=== PATIENT | female | born 1955 | race Caucasian/White ===

== ENCOUNTER 2016-05-06 12:54 | Inpatient (IN) | payer MEDICARE, BC ==
[2016-05-06] MEDS ORDERED: methylPREDNISolone SOD SUCCI 125 MG/2 ML VIAL IV STA (13:21)
[2016-05-06] MEDS ORDERED: SODIUM CHLORIDE 0.9% 1,000 ML IV STA (13:21)
[2016-05-06] MEDS ORDERED: IPRATROPIUM-ALBUTEROL 3 ML NEB INHALATION STA (13:21)
--- NOTE | 2016-05-06 13:26 | ED ---
General Adult HPI - General Chief complaint: Shortness of Breath Stated complaint: TANVI/Congestion Time Seen by Provider: 05/06/16 13:09 Source: patient, family, RN notes reviewed Mode of arrival: wheelchair Limitations: no limitations - History of Present Illness Initial comments: Chief complaint and history of present illness a 60-year-old female here with her daughter. The patient reports that she been having difficulty breathing getting increasingly so over the last several days she has chest discomfort from coughing so much productive green in color. History of asthmaCOPD. Denies fever. is on home O2 - Related Data Home Medications Medication Instructions Recorded Confirmed Albuterol Inhaler [Ventolin Hfa 1 - 2 puff INHALATION RT-QID PRN 05/17/15 Inhaler] Albuterol Nebulized [Ventolin 2.5 mg INHALATION RT-QID PRN 05/17/15 05/06/16 Nebulized] Atenolol [Tenormin] 25 mg PO DAILY 02/29/16 05/06/16 Formoterol Fumarate [Perforomist] 20 mcg INHALATION RT-BID 02/29/16 05/06/16 Budesonide/Formoterol Fumarate 2 puff INHALATION RT-BID 05/06/16 05/06/16 [Symbicort 160-4.5 Mcg Inhaler] Cetirizine HCl [Zyrtec] 10 mg PO DAILY 05/06/16 05/06/16 Ciprofloxacin HCl [Cipro] 500 mg PO BID 05/06/16 05/06/16 L.acidoph,Paracasei, B.lactis 1 cap PO DAILY 05/06/16 05/06/16 [Probiotic] Multivitamins, Thera [Multivitamin] 1 tab PO DAILY 05/06/16 05/06/16 Theophylline Anhydrous 200 mg PO DAILY 05/06/16 05/06/16 [Theophylline] guaiFENesin [Mucinex] 600 mg PO BID 05/06/16 05/06/16 predniSONE See Taper PO DAILY 05/06/16 05/06/16 Previous Rx's Medication Instructions Recorded Budesonide [Pulmicort] 1 mg INHALATION RT-BID #60 nebu 06/01/15 Tiotropium 18 Mcg/Puff [Spiriva] 1 puff INHALATION RT-DAILY #1 06/01/15 inhaler Allergies Allergy/AdvReac Type Severity Reaction Status Date / Time Sulfa (Sulfonamide Allergy Rash/Hives Verified 05/06/16 13:42 Antibiotics) pet dander Allergy Rash/Hives Uncoded 05/06/16 13:05 Review of Systems ROS Statement: Those systems with pertinent positive or pertinent negative responses have been documented in the HPI. Review of systems no complaint of visual acuity changes no complaint of headache no neck pain she is short of breath history of COPD productive cough. Laryngitis setting in. Coughing increases chest pain. No abdominal pain no nausea no vomiting no reports of diarrhea. All systems otherwise reviewed. Past medical problems significant for asthma and COPD chronic back pain no pain medications. Also medication for arrhythmia. Her surgeries include , tonsillectomy and tubal ligation. She's had colonoscopies with multiple polyps removed but no cancer diagnosed. Patient's family history significant for cancers and include prostate, kidney, bladder, leukemia, lung, bone cancer. Patient has ALLERGIES to sulfa drugs. She quit smoking one year ago denies alcohol use ROS Other: All systems not noted in ROS Statement are negative. Past Medical History Past Medical History: Asthma, COPD Additional Past Medical History / Comment(s): back pain, home O2 dependent, endometriosis History of Any Multi-Drug Resistant Organisms: None Reported Past Surgical History: Section, Tonsillectomy, Tubal Ligation Additional Past Surgical History / Comment(s): colonoscopy with polypectomy- benign, C-Diff, D&C. Past Anesthesia/Blood Transfusion Reactions: No Reported Reaction Past Psychological History: Anxiety Additional Psychological History / Comment(s): . Smoking Status: Former smoker Past Alcohol Use History: None Reported Additional Past Alcohol Use History / Comment(s): quit smoking 05/17/15 currently using nicotine patches. Past Drug Use History: None Reported - Past Family History Father Family Medical History: Cancer Additional Family Medical History / Comment(s): Father is . He had kidney, bladder and prostate cancer. He also had leukemia. Mother Additional Family Medical History / Comment(s): Mother is alive and 81 yrs old. She has a pacemaker and has had cardioversion. General Exam - General Exam Comments Initial Comments: General: The patient is awake and alert, appears short of breath having difficulty breathing coughing with productive cough greenish color. Chest wall pain with coughing. Hoarse of voice. Vital signs show temperature 97.9 pulse 95 respiratory rate 20 pulse ox 95% on 2-1/2 L. Blood pressure 109/66 Eye: Pupils are equal, round and reactive to light, extra-ocular movements are intact ; there is normal conjunctiva bilaterally. No signs of icterus. Ears, nose, mouth and throat: Reddened mucous membranes complaints of sore throat. Mildly dry tongue. Neck: The neck is supple, there is no tenderness , no anterior cervical lymphadenopathy, no neck pain. Cardiovascular: There is a regular rate and rhythm. No murmur, rub or gallop is appreciated. Respiratory: Wheezing bilaterally. Respiratory rate 20 pulse ox 95% on 2 L. Gastrointestinal: Soft, non-distended, non-tender abdomen without masses or organomegaly noted. There is no rebound or guarding present. No CVA tenderness. Bowel sounds are unremarkable. Back: There is no tenderness to palpation in the midline. There is no obvious deformity. Chronic back pain. Musculoskeletal: Normal ROM, no tenderness, There is no pedal edema. There is no calf tenderness or swelling. Sensation intact. Pulses equal bilaterally 2+. Neurological: No neuro deficits, walking talking balance. No focal or lateralizing findings. No complaints. Skin: Skin is warm and dry and no rashes or lesions are noted. Limitations: no limitations Course Vital Signs 05/06/16 05/06/16 05/06/16 13:04 13:21 13:39 Temperature 97.9 F 99.1 F Pulse Rate 95 99 Respiratory 20 26 H Rate Blood Pressure 109/66 O2 Sat by Pulse 95 Oximetry 05/06/16 13:52 Temperature Pulse Rate 89 Respiratory Rate Blood Pressure O2 Sat by Pulse Oximetry EKG Findings - EKG Comments: EKG Findings:: EKG was done and reviewed at 1336 showing sinus arrhythmia, occasional PVCs. Otherwise no acute ST elevation. Rate 92. Arm was 110 QRS 78 QT 3:[address] Ramsay Medical Decision Making - Medical Decision Making Medical decision making; patient's white count 20,000 should be noted she is on prednisone. Hemoglobin 15 hematocrit of 47, INR 1.0. The patient's potassium is 4.2 with a BUN 9 creatinine 0.6 and GFR greater than 60. Glucose 169. Patient had chest x-ray done and was reviewed radiologist his findings are the cardiomediastinal silhouette, aorta, and pulmonary vasculature within normal limits. Hyperinflation with mild diffuse interstitial prominence. Some strandy scarring and atelectasis of the lung bases. No consolidation and pleural effusion. Impression; COPD and chronic changes. No acute process. As read by Dr. Candelaria The plan the patient be admitted for acute exacerbation of asthma COPD. The patient's stiff neck loader will be consulted. - Lab Data Result diagrams: 05/06/16 13:24 05/06/16 13:24 Lab Results 05/06/16 05/06/16 05/06/16 Range/Units 13:24 13:24 13:24 WBC 20.1 H (3.8-10.6) k/uL RBC 5.15 (3.80-5.40) m/uL Hgb 15.5 (11.4-16.0) gm/dL Hct 47.7 H (34.0-46.0) % MCV 92.8 (80.0-100.0) fL MCH 30.1 (25.0-35.0) pg MCHC 32.5 (31.0-37.0) g/dL RDW 13.4 (11.5-15.5) % Plt Count 328 (150-450) k/uL Neutrophils % 91 % Lymphocytes % 5 % Monocytes % 3 % Eosinophils % 0 % Basophils % 0 % Neutrophils # 18.4 H (1.3-7.7) k/uL Lymphocytes # 1.0 (1.0-4.8) k/uL Monocytes # 0.6 (0-1.0) k/uL Eosinophils # 0.1 (0-0.7) k/uL Basophils # 0.0 (0-0.2) k/uL PT 10.1 (9.0-12.0) sec INR 1.0 (<1.1) APTT 22.4 (22.0-30.0) sec Sodium 140 (137-145) mmol/L Potassium 4.2 (3.5-5.1) mmol/L Chloride 95 L (98-107) mmol/L Carbon Dioxide 31 H (22-30) mmol/L Anion Gap 14 mmol/L BUN 9 (7-17) mg/dL Creatinine 0.60 (0.52-1.04) mg/dL Est GFR (MDRD) Af Amer >60 (>60 ml/min/1.73 sqM) Est GFR (MDRD) Non-Af >60 (>60 ml/min/1.73 sqM) Glucose 169 H (74-99) mg/dL Calcium 10.2 (8.4-10.2) mg/dL Magnesium 1.9 (1.6-2.3) mg/dL Total Bilirubin 0.3 (0.2-1.3) mg/dL AST 33 (14-36) U/L ALT 41 (9-52) U/L Alkaline Phosphatase 81 (38-126) U/L Total Protein 6.6 (6.3-8.2) g/dL Albumin 4.0 (3.5-5.0) g/dL Disposition Clinical Impression: Acute exacerbation of COPD with asthma Disposition: ADMITTED IP TO THIS HOSP Condition: Stable
[2016-05-06 13:50] LABS: Basophils % (A) 0 %; CH 30.6; CHCM 33.1; Eosinophils # (A) 0.1 k/uL (0-0.7); Eosinophils % (A) 0 %; HCT 47.7 % (34.0-46.0); HDW 2.43; HGB 15.5 gm/dL (11.4-16.0); Luc # (Auto) 0.16; Luc % (Auto) 1; Lymphocytes % (A) 5 %; MCH 30.1 pg (25.0-35.0); MCHC 32.5 g/dL (31.0-37.0); MCV 92.8 fL (80.0-100.0); Mean Platelet Volume 6.4; Monocytes # (A) 0.6 k/uL (0-1.0); Monocytes % (A) 3 %; Neutrophils # (A) 18.4 k/uL (1.3-7.7); Neutrophils % (A) 91 %; RBC 5.15 m/uL (3.80-5.40); RDW 13.4 % (11.5-15.5); WBC 20.1 k/uL (3.8-10.6); WBC (Perox) 20.01
[2016-05-06 13:56] LABS: Partial Thromboplastin Time 22.4 sec (22.0-30.0); Prothrombin Time 10.1 sec (9.0-12.0)
[2016-05-06 13:59] LABS: ALT 41 U/L (9-52); AST 33 U/L (14-36); Alkaline Phosphatase 81 U/L (38-126); Anion Gap 14 mmol/L; Blood Urea Nitrogen 9 mg/dL (7-17); Calcium 10.2 mg/dL (8.4-10.2); Carbon Dioxide 31 mmol/L (22-30); Chloride 95 mmol/L (98-107); Glucose 169 mg/dL (74-99); Magnesium 1.9 mg/dL (1.6-2.3); Non-African American GFR(MDRD) >60 (>60 ml/min/1.73 sqM); Potassium 4.2 mmol/L (3.5-5.1); Sodium 140 mmol/L (137-145); Total Bilirubin 0.3 mg/dL (0.2-1.3); Total Protein 6.6 g/dL (6.3-8.2)
--- NOTE | 2016-05-06 14:11 | XR ---
EXAMINATION TYPE: XR chest 2V DATE OF EXAM: 05/06/2016 2:06 PM COMPARISON: 02/29/2016 and 05/02/2016 HISTORY: 60-year-old female short of breath, COPD, productive cough TECHNIQUE: Frontal and lateral views FINDINGS: The cardiomediastinal silhouette, aorta, and pulmonary vasculature are within normal limits. Hyperinf lation with mild diffuse interstitial prominence. Some strandy scarring and atelectasis at the lung b ases. No consolidation or pleural effusion. IMPRESSION: COPD and chronic changes. No acute process seen.
[2016-05-06 14:18] LABS: Creatine Kinase 110 U/L (30-135)
[2016-05-06] MEDS ORDERED: NALOXONE 0.4 MG/ML 1 ML VIAL IV PRN (14:19)
[2016-05-06 14:31] LABS: Troponin I <0.012 ng/mL (0.000-0.034)
[2016-05-06 14:35] LABS: Creatine Kinase MB 2.9 ng/mL (0.0-2.4)
[2016-05-06 16:47] LABS: Glucose,Whole Blood 210 mg/dL (75-99)
[2016-05-06] MEDS: SODIUM CHLORIDE 0.9% 1,000 ML IV SCH (17:38)
[2016-05-06] MEDS: FORMOTEROL FUMARATE 20 MCG/2 ML NEBU INHALATION SCH (19:46)
[2016-05-06] MEDS: BUDESONIDE 1 MG/2 ML NEBU INHALATION SCH (19:46)
[2016-05-06] MEDS: IPRATROPIUM-ALBUTEROL 3 ML NEB INHALATION PRN (19:46)
[2016-05-06] MEDS ORDERED: SYMBICORT 160-4.5 MCG INHALER INHALATION SCH (20:00)
[2016-05-06] MEDS: guaiFENesin 600 MG TABLET.ER PO SCH (20:11)
[2016-05-06] MEDS: CIPROFLOXACIN HCL 500 MG TAB PO SCH (20:11)
[2016-05-06] MEDS: ACETAMINOPHEN TAB 325 MG TAB PO PRN (20:13)
[2016-05-06] MEDS: ALPRAZolam 0.25 MG TAB PO PRN (20:13)
[2016-05-06 21:15] LABS: Glucose,Whole Blood 161 mg/dL (75-99)
[2016-05-06] MEDS: HEPARIN SODIUM,PORCINE 5,000 UNIT/ML 1 ML VIAL SQ SCH (23:38)
[2016-05-06] MEDS: methylPREDNISolone SOD SUCCI 125 MG/2 ML VIAL IV SCH (23:39)
[2016-05-07] MEDS ORDERED: methylPREDNISolone SOD SUCCI 125 MG/2 ML VIAL IV SCH
[2016-05-07] MEDS: SODIUM CHLORIDE 0.9% 1,000 ML IV SCH ×2 (00:21→16:34)
[2016-05-07] MEDS: methylPREDNISolone SOD SUCCI 125 MG/2 ML VIAL IV SCH ×4 (05:15→23:17)
[2016-05-07 07:04] LABS: Glucose,Whole Blood 148 mg/dL (75-99)
[2016-05-07] MEDS: guaiFENesin 600 MG TABLET.ER PO SCH ×2 (08:13→20:01)
[2016-05-07] MEDS: THEOPHYLLINE 24 HOUR 200 MG CAP.ER.24H PO SCH (08:13)
[2016-05-07] MEDS: HEPARIN SODIUM,PORCINE 5,000 UNIT/ML 1 ML VIAL SQ SCH ×3 (08:13→23:17)
[2016-05-07] MEDS: LORATADINE 10 MG TAB PO SCH (08:13)
[2016-05-07] MEDS: PANTOPRAZOLE 40 MG/10 ML VIAL IV SCH (08:13)
[2016-05-07] MEDS: CIPROFLOXACIN HCL 500 MG TAB PO SCH ×2 (08:13→20:01)
[2016-05-07] MEDS: LACTOBACILLUS ACIDOPH & BULGAR 1 EACH PACKET PO SCH (08:13)
[2016-05-07] MEDS: INSULIN LISPRO (humaLOG) 300 UNIT/3 ML VIAL SQ SCH ×4 (08:16→22:07)
[2016-05-07] MEDS: IPRATROPIUM-ALBUTEROL 3 ML NEB INHALATION PRN ×4 (08:22→19:41)
[2016-05-07] MEDS: BUDESONIDE 1 MG/2 ML NEBU INHALATION SCH ×2 (08:23→19:41)
[2016-05-07] MEDS: FORMOTEROL FUMARATE 20 MCG/2 ML NEBU INHALATION SCH ×2 (08:23→19:41)
[2016-05-07] MEDS ORDERED: ATENOLOL 25 MG TAB PO SCH (09:00)
[2016-05-07 09:01] LABS: Basophils % (A) 0 %; CH 30.5; CHCM 32.5; Eosinophils % (A) 0 %; HCT 45.3 % (34.0-46.0); HDW 2.46; HGB 14.2 gm/dL (11.4-16.0); Luc # (Auto) 0.07; Luc % (Auto) 1; Lymphocytes # (A) 0.9 k/uL (1.0-4.8); Lymphocytes % (A) 7 %; MCH 29.5 pg (25.0-35.0); MCHC 31.4 g/dL (31.0-37.0); MCV 94.1 fL (80.0-100.0); Mean Platelet Volume 6.8; Monocytes # (A) 0.3 k/uL (0-1.0); Monocytes % (A) 2 %; Neutrophils % (A) 90 %; RBC 4.81 m/uL (3.80-5.40); RDW 13.2 % (11.5-15.5); WBC 13.3 k/uL (3.8-10.6)
[2016-05-07 09:40] LABS: Anion Gap 9 mmol/L; Blood Urea Nitrogen 12 mg/dL (7-17); Calcium 8.8 mg/dL (8.4-10.2); Carbon Dioxide 32 mmol/L (22-30); Chloride 100 mmol/L (98-107); Glucose 181 mg/dL (74-99); Non-African American GFR(MDRD) >60 (>60 ml/min/1.73 sqM); Potassium 4.3 mmol/L (3.5-5.1); Sodium 141 mmol/L (137-145)
[2016-05-07 11:00] LABS: Hemoglobin A1C 5.8 % (4.2-6.1)
[2016-05-07] MEDS: MULTIVITAMINS, THERA 1 EACH TAB PO SCH (11:12)
--- NOTE | 2016-05-07 11:16 | HP ---
DATE OF ADMISSION: 05/06/2016 CHIEF COMPLAINT: Difficulty breathing. HISTORY OF PRESENT ILLNESS: Ms. Olivera is a 60-year-old female with known history of COPD on home oxygen, chronic back pain and previous history of smoking, came to the hospital with complaints of worsening short of breath. Increasingly getting worse since last . Apparently patient did follow with Dr. Quinteros and the patient was given a steroid tapering dose and antibiotics, which did not improve her short of breath and she also complained of chest pain with coughing and headache as well. Sputum is more greenish in color. Otherwise, denied any fever. No chills. No sick contacts at home. Patient has been taking steroids and antibiotics and was using breathing treatments at home. REVIEW OF SYSTEMS: CONSTITUTIONAL: No fever. No chills. No weakness. RESPIRATORY: The patient does have cough with sputum production greenish and short of breath. CARDIOVASCULAR: No chest pain. Patient does have short of breath and no leg swelling. ABDOMEN: No nausea, vomiting, or abdominal pain. GENITOURINARY: Negative. ENDOCRINE: Negative. PSYCHIATRIC: Negative. SKIN: Negative. All other fourteen-point review of systems negative except as above. Past medical history includes asthma, COPD on home oxygen and chronic back pain and endometriosis. PAST SURGICAL HISTORY: , tonsillectomy tubal ligation, colonoscopy with polypectomy and D&C. PSYCHOSOCIAL HISTORY: Anxiety. SOCIAL HISTORY: Patient is a former smoker; quit smoking in May 2015 and is currently using nicotine patches. Denied any alcohol use. Denied any drugs or IVDU. FAMILY HISTORY: Father had cancer. He had kidney, bladder, and prostate cancer. He also had leukemia. Mother is alive and 81-year-old. She has a pacemaker and has had cardioversion. ALLERGIES: SULFA AND PET DANDER. Home medications: 1. Albuterol inhaler. 2. Albuterol nebulization. 3. Atenolol. 4. Formoterol. 5. Symbicort. 6. Cetirizine. 7. Ciprofloxacin. 8. Probiotic. 9. Multivitamins. 10. Theophylline. 11. Mucinex. 12. Prednisone tapering dose. 13. Pulmicort. 14. Tiotropium. PHYSICAL EXAMINATION: A 60-year-old female sitting in the bed comfortably, anxious, appears to be in mild distress due to short of breath. VITALS: Blood pressure is 114/62, pulse is 90, respirations 20, temperature afebrile, pulse ox 95% on 2 L nasal cannula. HEENT: Atraumatic, normocephalic. Neck is supple. No JVD. CVS: S1, S2 heard. No murmurs, no gallop. LUNGS: Bilateral diffuse wheezing and decreased air entry bilaterally. No crackles. Nonlabored breathing. ABDOMEN: Soft, nontender. Bowel sounds present. BLASTING ENTRYMAN: Awake, alert and oriented times three. No focal neurologic deficits. Cranial nerves grossly intact. EXTREMITIES: No edema. Pulses are palpable bilaterally. No clubbing or cyanosis. PSYCHIATRIC: Cooperative. Anxious. LABORATORY DATA: WBC 20.1, hemoglobin 15.5, platelets 328. Sodium 140, potassium 4.2, chloride 95, bicarb is 31, blood sugar 169, BUN 9, creatinine 0.6, NT-proBNP 110, Albumin 4.0, insulin type A and B not detected. Chest x-ray and chronic changes. No acute process is seen. EKG shows sinus rhythm with PVC. IMPRESSION: 1. Shortness of breath secondary to acute chronic obstructive pulmonary disease exacerbation. 2. Chronic respiratory failure secondary to chronic obstructive pulmonary disease on home oxygen dependent. 3. Leukocytosis, likely secondary to steroid use. 4. Tracheobronchitis. 5. Chronic back pain. 6. Anxiety. DISCUSSION AND PLAN: Patient will be continued on albuterol Atrovent breathing treatments and continue Formoterol and Pulmicort. Pulmonary has been consulted for further evaluation. We will get sputum culture and follow up blood cultures and continue the current management. Continue with cough syrup and pain management with Tylenol.
[2016-05-07 11:40] LABS: Glucose,Whole Blood 132 mg/dL (75-99)
[2016-05-07] MEDS: TIOTROPIUM 18 MCG/PUFF INHALER INHALATION SCH (11:51)
[2016-05-07 16:59] LABS: Glucose,Whole Blood 135 mg/dL (75-99)
--- NOTE | 2016-05-07 18:55 | P.CNPUL ---
History of Present Illness Consult date: 05/07/16 Reason for consult: COPD History of present illness: 60-year-old here patient with known history of advanced COPD with a baseline FEV1 of 34% of predicted was recently seen in our office for an acute COPD exacerbation the patient was given a course of Cipro and a steroid burst taper. The patient unfortunately did not show any signs of recovery and she came into the hospital because of increased shortness of breath chest tightness and wheezing. She is admitted currently for an acute COPD exacerbation. She is on a combination of DuoNeb neb last treatment [id number], Pulmicort Respules , Perforomist neb last treatment was and IV Solu-Medrol. The chest x-rays consistent with COPD without any acute process. No angina. No swelling lower extremities. No change in mental status. No other complaints otherwise. The patient is an ex-smoker and she quit smoking approximately a year ago. In terms of her COPD, the patient has a maintained on Spiriva and a maternal blood she was on a stat basis and she's been utilizing oxygen as needed especially at nighttime. Review of Systems For review of system was done and the positive findings are all mentioned above Past Medical History Past Medical History: COPD Additional Past Medical History / Comment(s): COPD, chronic hypoxic respiratory failure, chronic back pain, osteoarthritis, history of C. diff colitis, endometriosis. History of Any Multi-Drug Resistant Organisms: None Reported Past Surgical History: Section, Tonsillectomy, Tubal Ligation Additional Past Surgical History / Comment(s): colonoscopy with polypectomy- benign, C-Diff, D&C. Past Anesthesia/Blood Transfusion Reactions: No Reported Reaction Past Psychological History: Anxiety Additional Psychological History / Comment(s): . Smoking Status: Former smoker Past Alcohol Use History: None Reported Additional Past Alcohol Use History / Comment(s): STARTED AMOKING AT AGE 18 SMOKED 1PPD, quit smoking 05/18/15 Past Drug Use History: None Reported - Past Family History Father Family Medical History: Cancer Additional Family Medical History / Comment(s): Father is . He had kidney, bladder and prostate cancer. He also had leukemia. Mother Additional Family Medical History / Comment(s): Mother is alive and 81 yrs old. She has a pacemaker and has had cardioversion. Medications and Allergies Home Medications Medication Instructions Recorded Confirmed Type Albuterol Inhaler [Ventolin Hfa 1 - 2 puff INHALATION RT-QID PRN 05/17/15 History Inhaler] Albuterol Nebulized [Ventolin 2.5 mg INHALATION RT-QID PRN 05/17/15 05/06/16 History Nebulized] Atenolol [Tenormin] 25 mg PO DAILY 02/29/16 05/06/16 History Formoterol Fumarate [Perforomist] 20 mcg INHALATION RT-BID 02/29/16 05/06/16 History Budesonide/Formoterol Fumarate 2 puff INHALATION RT-BID 05/06/16 05/06/16 History [Symbicort 160-4.5 Mcg Inhaler] Cetirizine HCl [Zyrtec] 10 mg PO DAILY 05/06/16 05/06/16 History Ciprofloxacin HCl [Cipro] 500 mg PO BID 05/06/16 05/06/16 History L.acidoph,Paracasei, B.lactis 1 cap PO DAILY 05/06/16 05/06/16 History [Probiotic] Multivitamins, Thera [Multivitamin] 1 tab PO DAILY 05/06/16 05/06/16 History Theophylline Anhydrous 200 mg PO DAILY 05/06/16 05/06/16 History [Theophylline] guaiFENesin [Mucinex] 600 mg PO BID 05/06/16 05/06/16 History predniSONE See Taper PO DAILY 05/06/16 05/06/16 History Allergies Allergy/AdvReac Type Severity Reaction Status Date / Time Sulfa (Sulfonamide Allergy Rash/Hives Verified 05/06/16 13:42 Antibiotics) pet dander Allergy Rash/Hives Uncoded 05/06/16 13:05 Physical Exam Vitals: Vital Signs Temp Pulse Pulse Resp BP Pulse Ox 05/07/16 17:15 132 H 05/07/16 17:05 132 H 05/07/16 15:00 96.1 F L 128 H 18 127/72 96 05/07/16 12:16 104 H 05/07/16 11:52 104 H 05/07/16 08:47 108 H 05/07/16 08:35 100 05/07/16 08:34 100 05/07/16 08:23 100 05/07/16 07:00 96.8 F L 89 16 101/68 97 05/06/16 23:00 97.6 F 98 20 100/67 97 05/06/16 20:10 104 H 05/06/16 19:58 104 H 05/06/16 19:57 104 H 05/06/16 19:48 100 Intake and Output 05/07/16 05/07/16 05/07/16 06:59 14:59 22:59 Intake Total 980 640 Balance 980 640 Intake: IV 640 Sodium Chloride 0.9% 1, 640 000 ml @ 80 mls/hr IV . [id number] DEVIN Rx#:[id number] Intake, IV Titration 880 Amount Sodium Chloride 0.9% 1, 880 000 ml @ 80 mls/hr IV . [id number] DEVIN Rx#:[id number] Oral 100 Other: # Voids 1 3 Head exam was generally normal. There was no scleral icterus or corneal arcus. Mucous membranes were moist.Neck was supple and without jugular venous distension, thyromegaly, or carotid bruits. Carotids were easily palpable bilaterally. There was no adenopathy. Lung sounds are diminished bilaterally and there is some scattered expiratory wheezes bilaterally.Cardiac exam revealed the PMI to be normally situated and sized. The rhythm was regular and no extrasystoles were noted during several minutes of auscultation. The first and second heart sounds were normal and physiologic splitting of the second heart sound was noted. There were no murmurs, rubs, clicks, or gallops. Abdominal exam revealed normal bowel sounds. The abdomen was soft, non-tender, and without masses, organomegaly, or appreciable enlargement of the abdominal aorta.Examination of the extremities revealed easily palpable radial, femoral and pedal pulses. There was no cyanosis, clubbing or edema. Results - Laboratory Findings CBC and BMP: 05/07/16 08:04 05/07/16 08:04 PT/INR, D-dimer PT 10.1 sec (9.0-12.0) 05/06/16 13:24 INR 1.0 (<1.1) 05/06/16 13:24 Abnormal lab findings: Abnormal Labs 05/06/16 05/06/16 05/07/16 16:41 21:00 06:57 WBC Neutrophils # Lymphocytes # Carbon Dioxide Glucose POC Glucose (mg/dL) 210 H 161 H 148 H 05/07/16 05/07/16 05/07/16 08:04 08:04 11:16 WBC 13.3 H Neutrophils # 12.0 H Lymphocytes # 0.9 L Carbon Dioxide 32 H Glucose 181 H POC Glucose (mg/dL) 132 H 05/07/16 16:57 WBC Neutrophils # Lymphocytes # Carbon Dioxide Glucose POC Glucose (mg/dL) 135 H - Diagnostic Findings Chest x-ray: image reviewed Assessment and Plan Plan: Assessment 1 acute COPD exacerbation with secondary shortness of breath, failed outpatient treatment. Chest x-rays clear and free of any acute pulmonary infiltrates. 2 shortness of breath secondary to above 3 chronic hypoxic respiratory failure 4 chronic osteoarthritis with back pain. 5 endometriosis Plan In terms of therapy, we'll put the patient on DuoNeb nebulized treatments, Perforomist and Pulmicort overestimates twice a day, IV Solu-Medrol. We'll cautiously use antibiotics Mr. the patient has had previous C. diff colitis. The patient is currently on oral ciprofloxacin which will be continued. Is patient was evaluated in the presence of Dr. Brower to the bedside.
[2016-05-07] MEDS: ACETAMINOPHEN TAB 325 MG TAB PO PRN (19:34)
[2016-05-07] MEDS: ALPRAZolam 0.25 MG TAB PO PRN (20:01)
[2016-05-07 21:53] LABS: Glucose,Whole Blood 148 mg/dL (75-99)
[2016-05-07] MEDS ORDERED: METOPROLOL TARTRATE 25 MG TAB PO STA (22:51)
[2016-05-08] MEDS: SODIUM CHLORIDE 0.9% 1,000 ML IV SCH (04:00)
[2016-05-08] MEDS: methylPREDNISolone SOD SUCCI 125 MG/2 ML VIAL IV SCH ×4 (06:27→23:18)
[2016-05-08 07:27] LABS: Glucose,Whole Blood 129 mg/dL (75-99)
[2016-05-08] MEDS: BUDESONIDE 1 MG/2 ML NEBU INHALATION SCH ×2 (08:14→19:39)
[2016-05-08] MEDS: FORMOTEROL FUMARATE 20 MCG/2 ML NEBU INHALATION SCH ×2 (08:14→19:39)
[2016-05-08] MEDS: TIOTROPIUM 18 MCG/PUFF INHALER INHALATION SCH (08:14)
[2016-05-08] MEDS: IPRATROPIUM-ALBUTEROL 3 ML NEB INHALATION PRN ×3 (08:14→19:39)
--- NOTE | 2016-05-08 08:44 | PN ---
DATE OF SERVICE: 05/07/2016 INTERVAL HISTORY: Ms. Olivera is a 60-year-old female with known history of COPD and home oxygen, chronic back pain and history of smoking came to the hospital with worsening short of breath and failed outpatient therapy for COPD exacerbation. Currently, the patient is still wheezing and complaining of short of breath, but improved compared to yesterday. Leukocytosis improved as well. No fever. No chills. No acute overnight issues. REVIEW OF SYSTEMS: CONSTITUTIONAL: No fever. No chills. CARDIOVASCULAR: No chest pain. No worsening short of breath. RESPIRATORY: Patient does have cough with minimal sputum production and short of breath. PSYCHIATRIC: Negative. ENDOCRINE: Negative. NEUROLOGIC: Negative. MUSCULOSKELETAL: Negative. All other 14-point of review of systems negative except as above. CURRENT MEDICATIONS: Reviewed. PHYSICAL EXAMINATION: A 60-year-old female, lying in bed comfortably. Awake, alert, oriented x3. Appears to be in no apparent distress. VITALS: Blood pressure is 127/72, pulse is 128, respiration 18, temperature afebrile, pulse ox 98% on 3 L nasal cannula. HEENT: Atraumatic, normocephalic. Neck is supple. No JVD. CVS EXAM: S1, S2 heard. No murmurs, no gallop. LUNGS: Bilateral diffuse wheezing and rhonchi, no crackles. Nonlabored breathing. ABDOMEN: Soft and nontender. Bowel sounds are present. DATE NIGHT CAREGIVER: Awake, alert and oriented x3. No focal neurologic deficit. EXTREMITIES: Bilateral no edema. Pulses palpable bilaterally. No clubbing or cyanosis. PSYCHIATRIC: Cooperative. LABORATORY DATA: WBC 13.3, hemoglobin 14.2, platelets 341. Sodium 141, potassium 4.3, chloride 100, bicarb 32, BUN 12, creatinine 0.55. Blood sugar is 181. HBA1c 5.8. IMPRESSION: 1. Shortness of breath secondary to acute chronic obstructive pulmonary disease exacerbation and tracheobronchitis. 2. Chronic respiratory failure secondary to chronic obstructive pulmonary disease on home oxygen. 3. Leukocytosis secondary to steroid use, improved. 4. Chronic back pain. 5. Anxiety. 6. History of Clostridium difficile infection. DISCUSSION AND PLAN: Patient will be continued on breathing treatments and IV steroids and continue with current management and symptomatic management for cough. Further recommendations based on clinical course. Pulmonary is following this patient.
[2016-05-08] MEDS ORDERED: METOPROLOL TARTRATE 25 MG TAB PO SCH (09:00)
[2016-05-08] MEDS: INSULIN LISPRO (humaLOG) 300 UNIT/3 ML VIAL SQ SCH ×4 (09:21→21:38)
[2016-05-08] MEDS: guaiFENesin 600 MG TABLET.ER PO SCH ×2 (09:28→21:37)
[2016-05-08] MEDS: THEOPHYLLINE 24 HOUR 200 MG CAP.ER.24H PO SCH (09:28)
[2016-05-08] MEDS: HEPARIN SODIUM,PORCINE 5,000 UNIT/ML 1 ML VIAL SQ SCH ×3 (09:29→23:18)
[2016-05-08] MEDS: LORATADINE 10 MG TAB PO SCH (09:29)
[2016-05-08] MEDS: LACTOBACILLUS ACIDOPH & BULGAR 1 EACH PACKET PO SCH (09:29)
[2016-05-08] MEDS: CIPROFLOXACIN HCL 500 MG TAB PO SCH ×2 (09:29→21:38)
[2016-05-08] MEDS: PANTOPRAZOLE 40 MG/10 ML VIAL IV SCH (09:29)
[2016-05-08 12:50] LABS: Glucose,Whole Blood 117 mg/dL (75-99)
[2016-05-08] MEDS: MULTIVITAMINS, THERA 1 EACH TAB PO SCH (13:11)
--- NOTE | 2016-05-08 13:20 | CONS ---
DATE OF CONSULTATION: Mrs. Olivera is a 60-year-old female who is seen for cardiac evaluation. The patient's EMR reviewed. Patient is admitted with acute exacerbation of COPD. Patient has a stage IV COPD and asthma. The patient complains that she feels some palpitations on and off whenever she does any exertion she feels that her heart is racing. There is no history of diabetes, hypertension. Denies any history of orthopnea or PND. The patient denies any history of angina. Denies any prior history of myocardial infarction. Past medical history includes a prior history of polypectomy, C. difficile colitis, history of COPD and endometriosis. Patient's home medications included albuterol inhaler, Tenormin 25 mg daily, Cipro, Mucinex, prednisone. Physical examination at present reveals a 60-year-old female who does not appear to be in any acute distress. This patient's initial heart rate was 130, when she was admitted it was sinus tachycardiac. Since then, her heart rate remains in the range of 90 to 100 per minute. Blood pressure is 121/71 mmHg. Head/ENT examination is negative. Neck is supple. There is no increase in jugular venous pressure. Both the carotid pulses are felt. There is no bruit. Chest is symmetrical. HEART: The PMI is not felt. First and second heart sounds are normal. Lungs reveal bilateral scattered wheezes. Abdomen is soft. EXTREMITIES: Peripheral pulsations are 2+. Patient's chest x-ray suggestive of COPD. Patient's BNP level was only 110. Echocardiogram done in February revealed normal left ventricular systolic function without any evidence of pulmonary hypertension. FINAL IMPRESSION: This patient is primarily admitted with acute exacerbation of asthmatic bronchitis and chronic obstructive pulmonary disease. Patient has been having intermittent sinus tachycardia. Patient has ( ) bilateral rhonchi and wheezing. In view of that, I will discontinue the patient from Lopressor and try her on Calan 80 mg q.8 hourly. Continue the rest of the medications.
--- NOTE | 2016-05-08 16:37 | P.PN ---
Subjective Principal diagnosis: COPD exacerbation This is a very pleasant 60-year-old here patient with known history of advanced COPD with a baseline FEV1 of 34% of predicted was recently seen in our office for an acute COPD exacerbation the patient was given a course of Cipro and a steroid burst taper. The patient unfortunately did not show any signs of recovery and she came into the hospital because of increased shortness of breath chest tightness and wheezing. She is admitted currently for an acute COPD exacerbation. She is on a combination of DuoNeb neb last treatment around- the-clock, Pulmicort Respules, Perforomist neb last treatment was and IV Solu- Medrol. The chest x-rays consistent with COPD without any acute process. No angina. No swelling lower extremities. No change in mental status. No other complaints otherwise. The patient is an ex-smoker and she quit smoking approximately a year ago. In terms of her COPD, the patient has a maintained on Spiriva and a maternal blood she was on a stat basis and she's been utilizing oxygen as needed especially at nighttime. She is seen again today 05/08/2016 in follow-upon the regular medical floor. She is awake and alert in no acute distress. She states she is breathing slightly better today as compared to yesterday. Still dyspneic on minimal exertion. Still bronchospastic and wheezy.she has a loose nonproductive cough. No chills or night sweats. She is maintaining good O2 saturations in the upper 90s on 3 L/m per nasal cannula. Currently afebrile. Objective - Vital Signs Vital signs: Vital Signs Temp 97.4 F L 05/08/16 15:00 Pulse 94 05/08/16 15:00 Resp 22 05/08/16 15:00 BP 144/76 05/08/16 15:00 Pulse Ox 97 05/08/16 15:00 Intake & Output 05/07/16 05/08/16 05/08/16 18:59 06:59 18:59 Intake Total 238 663 3392 Balance 014 819 6980 Intake: IV 640 880 600 Sodium Chloride 0.9% 1, 640 880 600 000 ml @ 80 mls/hr IV . [id number] DEVIN Rx#:[id number] Oral 480 Other: Voiding Method Toilet # Voids 3 3 - Exam Head exam was generally normal. There was no scleral icterus or corneal arcus. Mucous membranes were moist.Neck was supple and without jugular venous distension, thyromegaly, or carotid bruits. Carotids were easily palpable bilaterally. There was no adenopathy. Lung sounds are diminished bilaterally and there is some scattered expiratory wheezes bilaterally.Cardiac exam revealed the PMI to be normally situated and sized. The rhythm was regular and no extrasystoles were noted during several minutes of auscultation. The first and second heart sounds were normal and physiologic splitting of the second heart sound was noted. There were no murmurs, rubs, clicks, or gallops. Abdominal exam revealed normal bowel sounds. The abdomen was soft, non-tender, and without masses, organomegaly, or appreciable enlargement of the abdominal aorta.Examination of the extremities revealed easily palpable radial, femoral and pedal pulses. There was no cyanosis, clubbing or edema. - Labs CBC & Chem 7: 05/07/16 08:04 05/07/16 08:04 Labs: Abnormal Lab Results - Last 24 Hours (Table) 05/07/16 05/07/16 05/08/16 Range/Units 16:57 21:51 07:25 POC Glucose (mg/dL) 135 H 148 H 129 H (75-99) mg/dL 05/08/16 Range/Units 12:29 POC Glucose (mg/dL) 117 H (75-99) mg/dL Microbiology - Last 24 Hours (Table) 05/07/16 17:00 Gram Stain - Preliminary Sputum Sputum Culture - Preliminary Assessment and Plan Plan: Assessment #1 Acute COPD exacerbation with secondary shortness of breath, failed outpatient treatment. Chest x-rays clear and free of any acute pulmonary infiltrates. #2 Chronic hypoxic respiratory failure #3 Chronic osteoarthritis with back pain. #4 Endometriosis Plan The patient was seen and evaluated by Dr. Brower. We will decrease her IV fluids.We'll continue the patient on DuoNeb nebulized treatments, Perforomist and Pulmicort overestimates twice a day, IV Solu-Medrol. We'll cautiously use antibiotics as the patient has had previous C. diff colitis. The patient is currently on oral ciprofloxacin which will be continued. She's not quite back to her baseline. We'll continue with her current medications. We'll increase her activity as tolerated. We'll continue to follow make further recommendations based on her clinical status.
[2016-05-08 17:07] LABS: Glucose,Whole Blood 148 mg/dL (75-99)
[2016-05-08] MEDS: VERAPAMIL 80 MG TAB PO SCH ×2 (17:38→21:38)
[2016-05-08] MEDS: ACETAMINOPHEN TAB 325 MG TAB PO PRN (18:31)
[2016-05-08] MEDS: guaiFENesin-DM 100-10MG/5ML 10 ML CUP PO PRN (19:55)
[2016-05-08 21:00] LABS: Glucose,Whole Blood 125 mg/dL (75-99)
[2016-05-08] MEDS: ALPRAZolam 0.25 MG TAB PO PRN (21:46)
[2016-05-09] MEDS: guaiFENesin-DM 100-10MG/5ML 10 ML CUP PO PRN ×2 (03:06→23:38)
[2016-05-09] MEDS: methylPREDNISolone SOD SUCCI 125 MG/2 ML VIAL IV SCH ×5 (06:15→23:39)
[2016-05-09 07:26] LABS: Glucose,Whole Blood 123 mg/dL (75-99)
[2016-05-09] MEDS: FORMOTEROL FUMARATE 20 MCG/2 ML NEBU INHALATION SCH ×2 (07:50→20:28)
[2016-05-09] MEDS: TIOTROPIUM 18 MCG/PUFF INHALER INHALATION SCH (07:50)
[2016-05-09] MEDS: BUDESONIDE 1 MG/2 ML NEBU INHALATION SCH ×2 (07:50→20:28)
[2016-05-09] MEDS: THEOPHYLLINE 24 HOUR 200 MG CAP.ER.24H PO SCH (08:22)
[2016-05-09] MEDS: guaiFENesin 600 MG TABLET.ER PO SCH ×2 (08:22→21:01)
[2016-05-09] MEDS: HEPARIN SODIUM,PORCINE 5,000 UNIT/ML 1 ML VIAL SQ SCH ×3 (08:22→23:39)
[2016-05-09] MEDS: VERAPAMIL 80 MG TAB PO SCH ×3 (08:22→21:37)
[2016-05-09] MEDS: PANTOPRAZOLE 40 MG TABLET PO SCH (08:22)
[2016-05-09] MEDS: CIPROFLOXACIN HCL 500 MG TAB PO SCH (08:22)
[2016-05-09] MEDS: LACTOBACILLUS ACIDOPH & BULGAR 1 EACH PACKET PO SCH (08:22)
[2016-05-09] MEDS: LORATADINE 10 MG TAB PO SCH (08:23)
[2016-05-09] MEDS: INSULIN LISPRO (humaLOG) 300 UNIT/3 ML VIAL SQ SCH ×4 (08:23→21:22)
--- NOTE | 2016-05-09 08:46 | PN ---
DATE OF SERVICE: 05/08/2016 Mrs. Olivera is a 60-year-old female with known history of COPD on home oxygen and chronic back pain and history of smoking and was admitted to the hospital for shortness of breath and currently being treated for acute COPD exacerbation. The patient was having sinus tachycardia and cardiology has been consulted and apparently Metoprolol has been changed to Verapamil and otherwise, the patient still having no short of breath and wheezing improved today. Otherwise, no fever. No chills. No acute overnight issues. No chest pain. No short of breath. No nausea, vomiting, abdominal pain. All other 14 point review of systems negative except as above. CURRENT MEDICATIONS: Reviewed. PHYSICAL EXAMINATION: A 60-year-old female lying in bed comfortably, awake, alert and oriented times three, appears to be in no apparent distress. VITALS: Blood pressure is 144/76. Pulse is 94, respiratory rate 22, temperature afebrile. Pulse ox 97% on 3 L nasal cannula. HEENT: Atraumatic, normocephalic. Neck is supple. No JVD. CVS: S1, S2 heard. No murmurs, no gallop. LUNGS: Bilateral diffuse wheezing positive and rhonchi improved. Nonlabored breathing. ABDOMEN: Soft, nontender. Bowel sounds present. COMPUTER CUSTOMER SUPPORT SPECIALIST: Awake and alert and oriented times three. No focal deficits. EXTREMITIES: No edema. Pulse palpable bilaterally. No clubbing or cyanosis. PSYCHIATRIC: Cooperative. Laboratory data reviewed. IMPRESSION: 1. Acute chronic obstructive pulmonary disease exacerbation and tracheobronchitis. 2. Chronic respiratory failure secondary to chronic obstructive pulmonary disease exacerbation home oxygen dependent. 3. Sinus tachycardia. 4. Leukocytosis secondary to steroid use improved now. 5. Chronic back pain. 6. Increased anxiety. 7. History of Clostridium difficile infection. DISCUSSION AND PLAN: Patient will be continued on the current management, continue on antibiotics and beta blockers has been changed to Verapamil now due to tachycardia and follow up closely. Further recommendations based on the clinical course. Anticipate discharge in the next 24 to 48 hours.
[2016-05-09 09:41] LABS: Basophils % (A) 0 %; CH 30.1; CHCM 32.2; Eosinophils % (A) 0 %; HCT 41.9 % (34.0-46.0); HDW 2.48; HGB 13.7 gm/dL (11.4-16.0); Luc # (Auto) 0.05; Luc % (Auto) 0; Lymphocytes # (A) 0.6 k/uL (1.0-4.8); Lymphocytes % (A) 3 %; MCH 30.6 pg (25.0-35.0); MCHC 32.7 g/dL (31.0-37.0); MCV 93.8 fL (80.0-100.0); Mean Platelet Volume 7.3; Monocytes # (A) 0.3 k/uL (0-1.0); Monocytes % (A) 2 %; Neutrophils # (A) 18.2 k/uL (1.3-7.7); Neutrophils % (A) 95 %; RBC 4.47 m/uL (3.80-5.40); RDW 13.1 % (11.5-15.5); WBC 19.1 k/uL (3.8-10.6); WBC (Perox) 20.27
[2016-05-09 09:46] LABS: Anion Gap 12 mmol/L; Blood Urea Nitrogen 14 mg/dL (7-17); Calcium 8.7 mg/dL (8.4-10.2); Carbon Dioxide 27 mmol/L (22-30); Chloride 102 mmol/L (98-107); Glucose 212 mg/dL (74-99); Non-African American GFR(MDRD) >60 (>60 ml/min/1.73 sqM); Potassium 4.3 mmol/L (3.5-5.1); Sodium 141 mmol/L (137-145)
[2016-05-09] MEDS: IPRATROPIUM-ALBUTEROL 3 ML NEB INHALATION PRN ×3 (11:09→20:28)
[2016-05-09 11:31] LABS: Glucose,Whole Blood 129 mg/dL (75-99)
[2016-05-09] MEDS: MULTIVITAMINS, THERA 1 EACH TAB PO SCH (13:37)
--- NOTE | 2016-05-09 13:59 | PN ---
Patient is a 60-year-old with advanced COPD, came in with severe tracheobronchitis, probably pneumococcal. Patient's sputum cultures are positive for gram-positive cocci in pairs and chains. I will switch her to Rocephin, discontinue ciprofloxacin and patient is still wheezing quite a bit, not ready to be discharged, may take a couple more days. Patient's heart rate is better controlled at this point of time with verapamil. REVIEW OF SYSTEMS: CARDIOVASCULAR: No chest pain, no orthopnea, no PND, no palpitations. PULMONARY: Continued shortness of breath. GASTROINTESTINAL: No diarrhea, nausea or vomiting. No abdominal pain. Normoactive bowel sounds. NEUROLOGIC: No headaches, no weakness, no numbness. Medications were reviewed. Medication changes as mentioned in the interval history. PHYSICAL EXAMINATION: Temperature 97.5, pulse of 88, respiratory rate of 18, blood pressure is 110/67, saturating at 95% on 2 L of O2 by nasal cannula. RESPIRATORY: Severe expiratory wheezing was appreciated and rhonchus breath sounds are appreciated and decreased air entry into bilateral lung cole. GENERAL: The patient is alert and oriented x3, not in any acute distress. Well developed, well nourished. HEENT: Pupils are round and equally reacting to light. EOMI. No scleral icterus. No conjunctival pallor. Normocephalic, atraumatic. No pharyngeal erythema. No thyromegaly. CARDIOVASCULAR: S1 and S2 present. No murmurs, rubs, or gallops. ABDOMEN: Soft, nontender, nondistended, normoactive bowel sounds. No palpable organomegaly. MUSCULOSKELETAL: No joint swelling or deformity. EXTREMITIES: No cyanosis, clubbing, or pedal edema. NEUROLOGICAL: Gross neurological examination did not reveal any focal deficits. SKIN: No rashes. LABORATORY DATA: CBC, CMP abnormal for elevated WBC count of 90,100. ASSESSMENT AND PLAN: 1. Acute on chronic hypercapnic respiratory failure secondary to chronic obstructive pulmonary disease exacerbation. 2. Sinus tachycardia secondary to hypoxemia, which improved with verapamil. 3. Chronic low back pain. 4. History of Clostridium difficile colitis in the past. Patient has a severe tracheobronchitis with possible pneumococcus ( ) pneumonia and patient will be started on Rocephin. Cipro will be discontinued. Watch for any diarrhea. Patient is high risk for Clostridium difficile considering her Clostridium difficile history in the past. Continue with systemic steroids, inhalational treatments and patient goes into respiratory distress easily with minimal exertion.
--- NOTE | 2016-05-09 14:59 | P.PN ---
Subjective Principal diagnosis: COPD exacerbation This is a very pleasant 60-year-old here patient with known history of advanced COPD with a baseline FEV1 of 34% of predicted was recently seen in our office for an acute COPD exacerbation the patient was given a course of Cipro and a steroid burst taper. The patient unfortunately did not show any signs of recovery and she came into the hospital because of increased shortness of breath chest tightness and wheezing. She is admitted currently for an acute COPD exacerbation. She is on a combination of DuoNeb neb last treatment around- the-clock, Pulmicort Respules, Perforomist neb last treatment was and IV Solu- Medrol. The chest x-rays consistent with COPD without any acute process. No angina. No swelling lower extremities. No change in mental status. No other complaints otherwise. The patient is an ex-smoker and she quit smoking approximately a year ago. In terms of her COPD, the patient has a maintained on Spiriva and a maternal blood she was on a stat basis and she's been utilizing oxygen as needed especially at nighttime. She is seen again today 05/08/2016 in follow-upon the regular medical floor. She is awake and alert in no acute distress. She states she is breathing slightly better today as compared to yesterday. Still dyspneic on minimal exertion. Still bronchospastic and wheezy.she has a loose nonproductive cough. No chills or night sweats. She is maintaining good O2 saturations in the upper 90s on 3 L/m per nasal cannula. Currently afebrile. The patient is seen again today 05/09/2016 in follow-up. She has been up ambulating in the room. She does remain dyspneic on minimal exertion but is better today as compared to yesterday. She is maintaining good O2 saturations in the mid 90s on 2 L/m per nasal cannula. She is afebrile. She continues with a loose productive cough of yellow sputum. Sputum specimen is still pending. Objective - Vital Signs Vital signs: Vital Signs Temp 97.5 F L 05/09/16 07:00 Pulse 88 05/09/16 11:18 Resp 18 05/09/16 07:00 BP 110/67 05/09/16 07:00 Pulse Ox 95 05/09/16 07:00 Intake & Output 05/08/16 05/09/16 05/09/16 18:59 06:59 18:59 Intake Total 1080 340 50 Balance 1080 340 50 Intake: IV 600 100 Sodium Chloride 0.9% 1, 600 100 000 ml @ 80 mls/hr IV . [id number] DEVIN Rx#:[id number] Intake, IV Titration 50 Amount cefTRIAXone 1,000 mg In 50 Sodium Chloride 0.9% 50 ml @ 100 mls/hr IVPB Q24HR DEVIN Rx#:[id number] Oral 480 240 - Exam Head exam was generally normal. There was no scleral icterus or corneal arcus. Mucous membranes were moist.Neck was supple and without jugular venous distension, thyromegaly, or carotid bruits. Carotids were easily palpable bilaterally. There was no adenopathy. Lung sounds are diminished bilaterally and there is some scattered expiratory wheezes bilaterally.Cardiac exam revealed the PMI to be normally situated and sized. The rhythm was regular and no extrasystoles were noted during several minutes of auscultation. The first and second heart sounds were normal and physiologic splitting of the second heart sound was noted. There were no murmurs, rubs, clicks, or gallops. Abdominal exam revealed normal bowel sounds. The abdomen was soft, non-tender, and without masses, organomegaly, or appreciable enlargement of the abdominal aorta.Examination of the extremities revealed easily palpable radial, femoral and pedal pulses. There was no cyanosis, clubbing or edema. - Labs CBC & Chem 7: 05/09/16 08:41 05/09/16 08:41 Labs: Abnormal Lab Results - Last 24 Hours (Table) 05/08/16 05/08/16 05/09/16 Range/Units 17:05 20:55 07:18 WBC (3.8-10.6) k/uL Neutrophils # (1.3-7.7) k/uL Lymphocytes # (1.0-4.8) k/uL Creatinine (0.52-1.04) mg/dL Glucose (74-99) mg/dL POC Glucose (mg/dL) 148 H 125 H 123 H (75-99) mg/dL 05/09/16 05/09/16 05/09/16 Range/Units 08:41 08:41 11:30 WBC 19.1 H (3.8-10.6) k/uL Neutrophils # 18.2 H (1.3-7.7) k/uL Lymphocytes # 0.6 L (1.0-4.8) k/uL Creatinine 0.50 L (0.52-1.04) mg/dL Glucose 212 H (74-99) mg/dL POC Glucose (mg/dL) 129 H (75-99) mg/dL Microbiology - Last 24 Hours (Table) 05/07/16 17:00 Gram Stain - Final Sputum Sputum Culture - Final Assessment and Plan Plan: Assessment #1 Acute COPD exacerbation with secondary shortness of breath, failed outpatient treatment. Chest x-rays clear and free of any acute pulmonary infiltrates. #2 Chronic hypoxic respiratory failure #3 Chronic osteoarthritis with back pain. #4 Endometriosis Plan The patient was seen and evaluated by Dr. Brower. The patient is improved today as compared to yesterday but not quite back to her baseline. She continues with a productive cough of yellow sputum. Sputum cultures pending. She remains on Mucinex. We'll continue with her other pulmonary medications including bronchodilators, Pulmicort and Perforomist inhalations, IV Solu- Medrol. She is maintained on antibiotics in the form of ceftriaxone. Will increase her activity as tolerated. We'll continue to follow make further recommendations.
--- NOTE | 2016-05-09 16:40 | PN ---
This patient is admitted with acute asthmatic bronchitis and patient was having palpitations and racing. Patient is feeling much better. She denies any palpitations and resting, is improved. Patient is afebrile. Heart rate is now 88 per minute. First and second heart sounds are normal. Lung examination still revealed bilateral rhonchi. I will continue the current medications.
[2016-05-09 16:54] LABS: Glucose,Whole Blood 125 mg/dL (75-99)
[2016-05-09] MEDS: ACETAMINOPHEN TAB 325 MG TAB PO PRN (19:36)
[2016-05-09 21:06] LABS: Glucose,Whole Blood 149 mg/dL (75-99)
[2016-05-09] MEDS: ALPRAZolam 0.25 MG TAB PO PRN (21:08)
[2016-05-10] MEDS: methylPREDNISolone SOD SUCCI 125 MG/2 ML VIAL IV SCH ×3 (05:53→17:14)
[2016-05-10] MEDS: guaiFENesin-DM 100-10MG/5ML 10 ML CUP PO PRN ×2 (06:08→09:52)
[2016-05-10 07:34] LABS: Glucose,Whole Blood 120 mg/dL (75-99)
[2016-05-10] MEDS: INSULIN LISPRO (humaLOG) 300 UNIT/3 ML VIAL SQ SCH ×4 (08:09→22:08)
[2016-05-10] MEDS: BUDESONIDE 1 MG/2 ML NEBU INHALATION SCH ×2 (08:52→19:39)
[2016-05-10] MEDS: IPRATROPIUM-ALBUTEROL 3 ML NEB INHALATION PRN ×3 (08:52→19:39)
[2016-05-10] MEDS: TIOTROPIUM 18 MCG/PUFF INHALER INHALATION SCH (08:52)
[2016-05-10] MEDS: FORMOTEROL FUMARATE 20 MCG/2 ML NEBU INHALATION SCH ×2 (08:52→19:39)
[2016-05-10 09:45] LABS: CH 30.3; HCT 43.9 % (34.0-46.0); HDW 2.48; HGB 14.1 gm/dL (11.4-16.0); MCH 29.8 pg (25.0-35.0); MCHC 32.2 g/dL (31.0-37.0); MCV 92.4 fL (80.0-100.0); Mean Platelet Volume 7.2; RBC 4.75 m/uL (3.80-5.40); RDW 13.2 % (11.5-15.5); WBC 19.4 k/uL (3.8-10.6)
[2016-05-10] MEDS: guaiFENesin 600 MG TABLET.ER PO SCH ×2 (09:52→20:44)
[2016-05-10] MEDS: VERAPAMIL 80 MG TAB PO SCH ×3 (09:52→20:44)
[2016-05-10] MEDS: HEPARIN SODIUM,PORCINE 5,000 UNIT/ML 1 ML VIAL SQ SCH ×2 (09:52→17:14)
[2016-05-10] MEDS: THEOPHYLLINE 24 HOUR 200 MG CAP.ER.24H PO SCH (09:53)
[2016-05-10] MEDS: LACTOBACILLUS ACIDOPH & BULGAR 1 EACH PACKET PO SCH (09:53)
[2016-05-10] MEDS: LORATADINE 10 MG TAB PO SCH (09:53)
[2016-05-10] MEDS: PANTOPRAZOLE 40 MG TABLET PO SCH (09:53)
[2016-05-10 10:13] LABS: Anion Gap 10 mmol/L; Blood Urea Nitrogen 17 mg/dL (7-17); Calcium 8.8 mg/dL (8.4-10.2); Carbon Dioxide 31 mmol/L (22-30); Chloride 99 mmol/L (98-107); Glucose 191 mg/dL (74-99); Non-African American GFR(MDRD) >60 (>60 ml/min/1.73 sqM); Potassium 4.4 mmol/L (3.5-5.1); Sodium 140 mmol/L (137-145)
[2016-05-10 12:11] LABS: Glucose,Whole Blood 129 mg/dL (75-99)
[2016-05-10] MEDS: MULTIVITAMINS, THERA 1 EACH TAB PO SCH (12:52)
--- NOTE | 2016-05-10 15:03 | P.PN ---
Subjective Principal diagnosis: COPD exacerbation This is a very pleasant 60-year-old here patient with known history of advanced COPD with a baseline FEV1 of 34% of predicted was recently seen in our office for an acute COPD exacerbation the patient was given a course of Cipro and a steroid burst taper. The patient unfortunately did not show any signs of recovery and she came into the hospital because of increased shortness of breath chest tightness and wheezing. She is admitted currently for an acute COPD exacerbation. She is on a combination of DuoNeb neb last treatment around- the-clock, Pulmicort Respules, Perforomist neb last treatment was and IV Solu- Medrol. The chest x-rays consistent with COPD without any acute process. No angina. No swelling lower extremities. No change in mental status. No other complaints otherwise. The patient is an ex-smoker and she quit smoking approximately a year ago. In terms of her COPD, the patient has a maintained on Spiriva and a maternal blood she was on a stat basis and she's been utilizing oxygen as needed especially at nighttime. She is seen again today 05/08/2016 in follow-upon the regular medical floor. She is awake and alert in no acute distress. She states she is breathing slightly better today as compared to yesterday. Still dyspneic on minimal exertion. Still bronchospastic and wheezy.she has a loose nonproductive cough. No chills or night sweats. She is maintaining good O2 saturations in the upper 90s on 3 L/m per nasal cannula. Currently afebrile. The patient is seen again today 05/09/2016 in follow-up. She has been up ambulating in the room. She does remain dyspneic on minimal exertion but is better today as compared to yesterday. She is maintaining good O2 saturations in the mid 90s on 2 L/m per nasal cannula. She is afebrile. She continues with a loose productive cough of yellow sputum. Sputum specimen is still pending. The patient is seen again today 05/10/2016 in follow-up on the regular medical floor. She is awake and alert in no acute distress. She still has a loose nonproductive cough. Wheezing. Dyspnea on exertion. Not quite back to her baseline. We'll continue with her current medications. Sputum culture revealed no growth. Blood cultures revealed no growth. She remains afebrile. She is maintaining good O2 saturations in the mid 90s on 2 L/m per nasal cannula. Objective - Vital Signs Vital signs: Vital Signs Temp 98.7 F 05/10/16 07:00 Pulse 108 H 05/10/16 12:38 Resp 18 05/10/16 07:00 BP 122/76 05/10/16 07:00 Pulse Ox 94 L 05/10/16 07:00 Intake & Output 05/09/16 05/10/16 05/10/16 18:59 06:59 18:59 Intake Total 50 200 Balance 50 200 Intake: Intake, IV Titration 50 Amount cefTRIAXone 1,000 mg In 50 Sodium Chloride 0.9% 50 ml @ 100 mls/hr IVPB Q24HR DEVIN Rx#:[id number] Oral 200 Other: # Voids 2 # Bowel Movements 0 - Exam Head exam was generally normal. There was no scleral icterus or corneal arcus. Mucous membranes were moist.Neck was supple and without jugular venous distension, thyromegaly, or carotid bruits. Carotids were easily palpable bilaterally. There was no adenopathy. Lung sounds are diminished bilaterally and there is some scattered expiratory wheezes bilaterally.Cardiac exam revealed the PMI to be normally situated and sized. The rhythm was regular and no extrasystoles were noted during several minutes of auscultation. The first and second heart sounds were normal and physiologic splitting of the second heart sound was noted. There were no murmurs, rubs, clicks, or gallops. Abdominal exam revealed normal bowel sounds. The abdomen was soft, non-tender, and without masses, organomegaly, or appreciable enlargement of the abdominal aorta.Examination of the extremities revealed easily palpable radial, femoral and pedal pulses. There was no cyanosis, clubbing or edema. - Labs CBC & Chem 7: 05/10/16 09:06 05/10/16 09:06 Labs: Abnormal Lab Results - Last 24 Hours (Table) 05/09/16 05/09/16 05/10/16 Range/Units 16:49 21:05 07:29 WBC (3.8-10.6) k/uL Carbon Dioxide (22-30) mmol/L Creatinine (0.52-1.04) mg/dL Glucose (74-99) mg/dL POC Glucose (mg/dL) 125 H 149 H 120 H (75-99) mg/dL 05/10/16 05/10/16 05/10/16 Range/Units 09:06 09:06 12:06 WBC 19.4 H (3.8-10.6) k/uL Carbon Dioxide 31 H (22-30) mmol/L Creatinine 0.47 L (0.52-1.04) mg/dL Glucose 191 H (74-99) mg/dL POC Glucose (mg/dL) 129 H (75-99) mg/dL Assessment and Plan Plan: Assessment #1 Acute COPD exacerbation with secondary shortness of breath, failed outpatient treatment. Chest x-rays clear and free of any acute pulmonary infiltrates. #2 Acute on chronic hypoxic respiratory failure in [place] to above. #3 Chronic osteoarthritis with back pain. #4 Endometriosis Plan The patient was seen and evaluated by Dr. Brower. The patient is improved today as compared to yesterday but not quite back to her baseline. He continues with a nonproductive cough. She remains on Mucinex. We'll continue with her other pulmonary medications including bronchodilators, Pulmicort and Perforomist inhalations, IV Solu-Medrol. She is maintained on antibiotics in the form of ceftriaxone. Will increase her activity as tolerated. We'll continue to follow and make further recommendations. Hopefully home within the next 24-48 hours.
--- NOTE | 2016-05-10 15:12 | PN ---
Patient is a 60-year-old with advanced COPD, came in with severe tracheobronchitis, probably pneumococcal. Patient's sputum cultures are positive for gram-positive cocci in pairs and chains. I will switch her to Rocephin, discontinue ciprofloxacin and patient is still wheezing quite a bit, not ready to be discharged, may take a couple more days. Patient's heart rate is better controlled at this point of time with Verapamil. REVIEW OF SYSTEMS: CARDIOVASCULAR: No chest pain, no orthopnea, no PND, no palpitations. PULMONARY: Continued shortness of breath. GASTROINTESTINAL: No diarrhea, nausea or vomiting. No abdominal pain. Normoactive bowel sounds. NEUROLOGIC: No headaches, no weakness, no numbness. Medications were reviewed. Medication changes as mentioned in the interval history. PHYSICAL EXAMINATION: Temperature 98.7, pulse of 98, respiratory rate of 18. Blood pressure is 122/76. Saturating at 94% on 2 L of oxygen by nasal cannula. RESPIRATORY: Severe expiratory wheezing was appreciated and rhonchus breath sounds are appreciated and decreased air entry into bilateral lung cole. GENERAL: The patient is alert and oriented x3, not in any acute distress. Well developed, well nourished. HEENT: Pupils are round and equally reacting to light. EOMI. No scleral icterus. No conjunctival pallor. Normocephalic, atraumatic. No pharyngeal erythema. No thyromegaly. CARDIOVASCULAR: S1 and S2 present. No murmurs, rubs, or gallops. ABDOMEN: Soft, nontender, nondistended, normoactive bowel sounds. No palpable organomegaly. MUSCULOSKELETAL: No joint swelling or deformity. EXTREMITIES: No cyanosis, clubbing, or pedal edema. NEUROLOGICAL: Gross neurological examination did not reveal any focal deficits. SKIN: No rashes. LABORATORY DATA: No significant change compared to yesterday. ASSESSMENT AND PLAN: 1. Acute on chronic hypercapnic respiratory failure secondary to chronic obstructive pulmonary disease exacerbation. 2. Sinus tachycardia secondary to hypoxemia, which improved with Verapamil. 3. Chronic low back pain. 4. History of Clostridium difficile colitis in the past. Patient has a severe tracheobronchitis with possible pneumococcus ( ) pneumonia and patient will be started on Rocephin. Cipro will be discontinued. Watch for any diarrhea. Patient is high risk for Clostridium difficile considering her Clostridium difficile history in the past. Will continue with systemic steroids, inhalational treatments. Awaiting improvement in her respiratory status. Patient goes into respiratory distress easily with minimal exertion. MTDD
--- NOTE | 2016-05-10 15:35 | PN ---
This patient is admitted with acute asthmatic bronchitis. She is feeling better. Continues to feel short of breath and occasionally feels heart fluttering. Heart rate is 90 to 110 per minute. First and second heart sounds are normal. Lungs reveal bilateral scattered wheezes and rhonchi. Blood pressure is 122/76 mmHg. I would recommend patient to continue the current medications.
[2016-05-10 17:05] LABS: Glucose,Whole Blood 159 mg/dL (75-99)
[2016-05-10] MEDS: ALPRAZolam 0.25 MG TAB PO PRN (20:43)
[2016-05-10] MEDS: ACETAMINOPHEN TAB 325 MG TAB PO PRN (20:47)
[2016-05-10 22:02] LABS: Glucose,Whole Blood 142 mg/dL (75-99)
[2016-05-11] MEDS: HEPARIN SODIUM,PORCINE 5,000 UNIT/ML 1 ML VIAL SQ SCH ×4 (00:06→23:36)
[2016-05-11] MEDS: methylPREDNISolone SOD SUCCI 125 MG/2 ML VIAL IV SCH ×5 (00:09→23:36)
[2016-05-11] MEDS: IPRATROPIUM-ALBUTEROL 3 ML NEB INHALATION PRN ×5 (04:30→20:00)
[2016-05-11] MEDS: guaiFENesin-DM 100-10MG/5ML 10 ML CUP PO PRN (04:30)
[2016-05-11 07:31] LABS: Glucose,Whole Blood 116 mg/dL (75-99)
[2016-05-11] MEDS: INSULIN LISPRO (humaLOG) 300 UNIT/3 ML VIAL SQ SCH ×4 (07:54→21:05)
[2016-05-11] MEDS: BUDESONIDE 1 MG/2 ML NEBU INHALATION SCH ×2 (08:19→20:01)
[2016-05-11] MEDS: FORMOTEROL FUMARATE 20 MCG/2 ML NEBU INHALATION SCH ×2 (08:19→20:00)
[2016-05-11] MEDS: TIOTROPIUM 18 MCG/PUFF INHALER INHALATION SCH (08:31)
[2016-05-11] MEDS: VERAPAMIL 80 MG TAB PO SCH ×3 (10:25→21:42)
[2016-05-11] MEDS: THEOPHYLLINE 24 HOUR 200 MG CAP.ER.24H PO SCH (10:25)
[2016-05-11] MEDS: LORATADINE 10 MG TAB PO SCH (10:25)
[2016-05-11] MEDS: LACTOBACILLUS ACIDOPH & BULGAR 1 EACH PACKET PO SCH (10:25)
[2016-05-11] MEDS: PANTOPRAZOLE 40 MG TABLET PO SCH (10:26)
[2016-05-11] MEDS: guaiFENesin 600 MG TABLET.ER PO SCH ×2 (10:26→21:05)
--- NOTE | 2016-05-11 11:56 | PN ---
Patient is a 60-year-old with advanced COPD, came in with severe tracheobronchitis, probably pneumococcal. Patient's sputum cultures are positive for gram-positive cocci in pairs and chains. I will switch her to Rocephin, discontinue ciprofloxacin and patient is still wheezing quite a bit, not ready to be discharged, may take a couple more days. Patient's heart rate is better controlled at this point of time with Verapamil. REVIEW OF SYSTEMS: CARDIOVASCULAR: No chest pain, no orthopnea, no PND, no palpitations. PULMONARY: Continued shortness of breath. GASTROINTESTINAL: No diarrhea, nausea or vomiting. No abdominal pain. Normoactive bowel sounds. NEUROLOGIC: No headaches, no weakness, no numbness. Medications were reviewed. Medication changes as mentioned in the interval history. PHYSICAL EXAMINATION: Temperature 97.7, pulse of 88, respiratory rate of 16, blood pressure is 135/84, saturating at 93% on 2 L of O2 nasal cannula. RESPIRATORY: Severe expiratory wheezing was appreciated and rhonchus breath sounds are appreciated and decreased air entry into bilateral lung cole. GENERAL: The patient is alert and oriented x3, not in any acute distress. Well developed, well nourished. HEENT: Pupils are round and equally reacting to light. EOMI. No scleral icterus. No conjunctival pallor. Normocephalic, atraumatic. No pharyngeal erythema. No thyromegaly. CARDIOVASCULAR: S1 and S2 present. No murmurs, rubs, or gallops. ABDOMEN: Soft, nontender, nondistended, normoactive bowel sounds. No palpable organomegaly. MUSCULOSKELETAL: No joint swelling or deformity. EXTREMITIES: No cyanosis, clubbing, or pedal edema. NEUROLOGICAL: Gross neurological examination did not reveal any focal deficits. SKIN: No rashes. LABORATORY DATA: No significant change compared to yesterday. ASSESSMENT AND PLAN: 1. Acute on chronic hypercapnic respiratory failure secondary to chronic obstructive pulmonary disease exacerbation. 2. Sinus tachycardia secondary to hypoxemia, which improved with Verapamil. 3. Chronic low back pain. 4. History of Clostridium difficile colitis in the past. Patient has a severe tracheobronchitis with possible pneumococcus ( ) pneumonia and patient will be started on Rocephin. Cipro will be discontinued. Watch for any diarrhea. Patient is high risk for Clostridium difficile considering her Clostridium difficile history in the past. Will continue with systemic steroids, inhalational treatments. Awaiting improvement in her respiratory status. Patient goes into respiratory distress easily with minimal exertion. PLAN: Continue with systemic steroids, inhalational treatments. Continue with antibiotics, supportive care. Patient still has significant expiratory wheezing and does get short of breath easily with minimal exertion. MTDD
[2016-05-11 12:03] LABS: Glucose,Whole Blood 130 mg/dL (75-99)
[2016-05-11] MEDS: MULTIVITAMINS, THERA 1 EACH TAB PO SCH (13:18)
[2016-05-11 17:11] LABS: Glucose,Whole Blood 131 mg/dL (75-99)
--- NOTE | 2016-05-11 20:26 | P.PN ---
Subjective This is a very pleasant 60-year-old here patient with known history of advanced COPD with a baseline FEV1 of 34% of predicted was recently seen in our office for an acute COPD exacerbation the patient was given a course of Cipro and a steroid burst taper. The patient unfortunately did not show any signs of recovery and she came into the hospital because of increased shortness of breath chest tightness and wheezing. She is admitted currently for an acute COPD exacerbation. She is on a combination of DuoNeb neb last treatment around- the-clock, Pulmicort Respules, Perforomist neb last treatment was and IV Solu- Medrol. The chest x-rays consistent with COPD without any acute process. No angina. No swelling lower extremities. No change in mental status. No other complaints otherwise. The patient is an ex-smoker and she quit smoking approximately a year ago. In terms of her COPD, the patient has a maintained on Spiriva and a maternal blood she was on a stat basis and she's been utilizing oxygen as needed especially at nighttime. She is seen again today 05/08/2016 in follow-upon the regular medical floor. She is awake and alert in no acute distress. She states she is breathing slightly better today as compared to yesterday. Still dyspneic on minimal exertion. Still bronchospastic and wheezy.she has a loose nonproductive cough. No chills or night sweats. She is maintaining good O2 saturations in the upper 90s on 3 L/m per nasal cannula. Currently afebrile. The patient is seen again today 05/09/2016 in follow-up. She has been up ambulating in the room. She does remain dyspneic on minimal exertion but is better today as compared to yesterday. She is maintaining good O2 saturations in the mid 90s on 2 L/m per nasal cannula. She is afebrile. She continues with a loose productive cough of yellow sputum. Sputum specimen is still pending. The patient is seen again today 05/10/2016 in follow-up on the regular medical floor. She is awake and alert in no acute distress. She still has a loose nonproductive cough. Wheezing. Dyspnea on exertion. Not quite back to her baseline. We'll continue with her current medications. Sputum culture revealed no growth. Blood cultures revealed no growth. She remains afebrile. She is maintaining good O2 saturations in the mid 90s on 2 L/m per nasal cannula. On 05/11/2016 the patient is still being treated for an acute COPD exacerbation. The patient has severe COPD with an FEV1 of 34% of predicted at baseline. She is showing some limited improvement and she is less short of breath. Yet she does not think she is back to her baseline. She gets short of breath with limited amount of activity and her sputum Gram stain and culture came back consistent with normal respiratory akosua. Otherwise no new other complaints. The patient continues to show signs of recovery. She remains on initial vocal dilators and systemic steroids. Objective - Vital Signs Vital signs: Vital Signs Temp 97.6 F 05/11/16 15:00 Pulse 92 05/11/16 20:12 Resp 16 05/11/16 15:00 BP 141/79 05/11/16 15:00 Pulse Ox 92 L 05/11/16 15:00 Intake & Output 05/11/16 05/11/16 05/12/16 06:59 18:59 06:59 Intake Total 0 Balance 0 Intake: Intake, IV Titration 0 Amount cefTRIAXone 1,000 mg In 0 Sodium Chloride 0.9% 50 ml @ 100 mls/hr IVPB Q24HR [facility] Rx#:[id number] Other: # Voids 1 3 # Bowel Movements 0 0 - Exam Head exam was generally normal. There was no scleral icterus or corneal arcus. Mucous membranes were moist.Neck was supple and without jugular venous distension, thyromegaly, or carotid bruits. Carotids were easily palpable bilaterally. There was no adenopathy. Lung sounds are diminished bilaterally along with diffuse expiratory wheezes heard throughout the lung cole. There is also prolongation of expiratory phase of breathing.Cardiac exam revealed the PMI to be normally situated and sized. The rhythm was regular and no extrasystoles were noted during several minutes of auscultation. The first and second heart sounds were normal and physiologic splitting of the second heart sound was noted. There were no murmurs, rubs, clicks, or gallops.Abdominal exam revealed normal bowel sounds. The abdomen was soft, non-tender, and without masses, organomegaly, or appreciable enlargement of the abdominal aorta.Examination of the extremities revealed easily palpable radial, femoral and pedal pulses. There was no cyanosis, clubbing or edema. - Labs CBC & Chem 7: 05/10/16 09:06 05/10/16 09:06 Labs: Abnormal Lab Results - Last 24 Hours (Table) 05/10/16 05/11/16 05/11/16 Range/Units 21:45 07:20 12:02 POC Glucose (mg/dL) 142 H 116 H 130 H (75-99) mg/dL 05/11/16 Range/Units 17:10 POC Glucose (mg/dL) 131 H (75-99) mg/dL Assessment and Plan Plan: Assessment #1 Acute COPD exacerbation with secondary shortness of breath, failed outpatient treatment. Chest x-rays clear and free of any acute pulmonary infiltrates. #2 Acute on chronic hypoxic respiratory failure in due to above. #3 Chronic osteoarthritis with back pain. #4 Endometriosis Plan Improving slowly. Continue same treatment. Continue IV Solu-Medrol to high dose of 60 mg every 6 hours. Encourage ambulation. No other complaints otherwise. Anticipate another 24-48 hours of treatment prior to his COPD improving.
[2016-05-11 20:46] LABS: Glucose,Whole Blood 143 mg/dL (75-99)
[2016-05-11] MEDS: ALPRAZolam 0.25 MG TAB PO PRN (21:10)
[2016-05-11] MEDS: ACETAMINOPHEN TAB 325 MG TAB PO PRN (21:10)
[2016-05-12] MEDS: methylPREDNISolone SOD SUCCI 125 MG/2 ML VIAL IV SCH ×3 (06:15→17:54)
[2016-05-12] MEDS: FORMOTEROL FUMARATE 20 MCG/2 ML NEBU INHALATION SCH ×2 (07:03→19:50)
[2016-05-12] MEDS: BUDESONIDE 1 MG/2 ML NEBU INHALATION SCH ×2 (07:03→19:50)
[2016-05-12] MEDS: IPRATROPIUM-ALBUTEROL 3 ML NEB INHALATION PRN ×4 (07:03→19:50)
[2016-05-12] MEDS: TIOTROPIUM 18 MCG/PUFF INHALER INHALATION SCH (07:16)
[2016-05-12 07:28] LABS: Glucose,Whole Blood 119 mg/dL (75-99)
[2016-05-12] MEDS: INSULIN LISPRO (humaLOG) 300 UNIT/3 ML VIAL SQ SCH ×4 (07:44→20:58)
[2016-05-12] MEDS: LORATADINE 10 MG TAB PO SCH (08:22)
[2016-05-12] MEDS: LACTOBACILLUS ACIDOPH & BULGAR 1 EACH PACKET PO SCH (08:28)
[2016-05-12] MEDS: PANTOPRAZOLE 40 MG TABLET PO SCH (08:29)
[2016-05-12] MEDS: THEOPHYLLINE 24 HOUR 200 MG CAP.ER.24H PO SCH (08:29)
[2016-05-12] MEDS: guaiFENesin 600 MG TABLET.ER PO SCH ×2 (08:29→20:54)
[2016-05-12] MEDS: HEPARIN SODIUM,PORCINE 5,000 UNIT/ML 1 ML VIAL SQ SCH ×2 (08:29→16:31)
[2016-05-12] MEDS: VERAPAMIL 80 MG TAB PO SCH ×3 (08:29→20:54)
[2016-05-12 12:08] LABS: Glucose,Whole Blood 114 mg/dL (75-99)
--- NOTE | 2016-05-12 12:51 | PN ---
Patient is a 60-year-old admitted for chronic obstructive pulmonary disease exacerbation, doing much better today. REVIEW OF SYSTEMS: CARDIOVASCULAR: No chest pain, no orthopnea, no PND, no palpitations. PULMONARY: Denied any shortness of breath. No cough or hemoptysis. GASTROINTESTINAL: No diarrhea, nausea or vomiting. No abdominal pain. Normoactive bowel sounds. NEUROLOGIC: No headaches, no weakness, no numbness. Medications were reviewed. PHYSICAL EXAMINATION: VITAL SIGNS: Temperature 97.5, pulse of 88, respiratory rate 20, blood pressure 190/78. Saturating at 97% on 2 liters O2 by nasal cannula. GENERAL: The patient is alert and oriented x3, not in any acute distress. Well developed, well nourished. HEENT: Pupils are round and equally reacting to light. EOMI. No scleral icterus. No conjunctival pallor. Normocephalic, atraumatic. No pharyngeal erythema. No thyromegaly. CARDIOVASCULAR: S1 and S2 present. No murmurs, rubs, or gallops. PULMONARY: Wheezing has significantly improved. Significantly improved air entry into bilateral lung cole. No crackles were appreciated. ABDOMEN: Soft, nontender, nondistended, normoactive bowel sounds. No palpable organomegaly. MUSCULOSKELETAL: No joint swelling or deformity. EXTREMITIES: No cyanosis, clubbing, or pedal edema. NEUROLOGICAL: Gross neurological examination did not reveal any focal deficits. SKIN: No rashes. Patient is also feeling better today. Possibility of discharge tomorrow. LABORATORY DATA: No lab data is available from today. ASSESSMENT AND PLAN: 1. Acute on chronic hypercapnic respiratory failure secondary to chronic obstructive pulmonary disease exacerbation. There is significant improvement compared to yesterday. Possibility of discharge tomorrow. 2. Sinus tachycardia secondary to toxemia. Patient is fairly rate-controlled now. Continue with present medications of verapamil and beta alf, 3. Chronic low back pain. 4. Clostridium difficile colitis in the past. 5. Patient presently has severe tracheobronchitis with possibly pneumococcus for which patient is on Rocephin, which will be continued.
[2016-05-12] MEDS: MULTIVITAMINS, THERA 1 EACH TAB PO SCH (13:11)
[2016-05-12 17:41] LABS: Glucose,Whole Blood 168 mg/dL (75-99)
[2016-05-12] MEDS: ALPRAZolam 0.25 MG TAB PO PRN (20:51)
[2016-05-12] MEDS: ACETAMINOPHEN TAB 325 MG TAB PO PRN (20:51)
[2016-05-12 21:00] LABS: Glucose,Whole Blood 191 mg/dL (75-99)
--- NOTE | 2016-05-12 22:16 | P.PN ---
Subjective This is a very pleasant 60-year-old here patient with known history of advanced COPD with a baseline FEV1 of 34% of predicted was recently seen in our office for an acute COPD exacerbation the patient was given a course of Cipro and a steroid burst taper. The patient unfortunately did not show any signs of recovery and she came into the hospital because of increased shortness of breath chest tightness and wheezing. She is admitted currently for an acute COPD exacerbation. She is on a combination of DuoNeb neb last treatment around- the-clock, Pulmicort Respules, Perforomist neb last treatment was and IV Solu- Medrol. The chest x-rays consistent with COPD without any acute process. No angina. No swelling lower extremities. No change in mental status. No other complaints otherwise. The patient is an ex-smoker and she quit smoking approximately a year ago. In terms of her COPD, the patient has a maintained on Spiriva and a maternal blood she was on a stat basis and she's been utilizing oxygen as needed especially at nighttime. She is seen again today 05/08/2016 in follow-upon the regular medical floor. She is awake and alert in no acute distress. She states she is breathing slightly better today as compared to yesterday. Still dyspneic on minimal exertion. Still bronchospastic and wheezy.she has a loose nonproductive cough. No chills or night sweats. She is maintaining good O2 saturations in the upper 90s on 3 L/m per nasal cannula. Currently afebrile. The patient is seen again today 05/09/2016 in follow-up. She has been up ambulating in the room. She does remain dyspneic on minimal exertion but is better today as compared to yesterday. She is maintaining good O2 saturations in the mid 90s on 2 L/m per nasal cannula. She is afebrile. She continues with a loose productive cough of yellow sputum. Sputum specimen is still pending. The patient is seen again today 05/10/2016 in follow-up on the regular medical floor. She is awake and alert in no acute distress. She still has a loose nonproductive cough. Wheezing. Dyspnea on exertion. Not quite back to her baseline. We'll continue with her current medications. Sputum culture revealed no growth. Blood cultures revealed no growth. She remains afebrile. She is maintaining good O2 saturations in the mid 90s on 2 L/m per nasal cannula. On 05/11/2016 the patient is still being treated for an acute COPD exacerbation. The patient has severe COPD with an FEV1 of 34% of predicted at baseline. She is showing some limited improvement and she is less short of breath. Yet she does not think she is back to her baseline. She gets short of breath with limited amount of activity and her sputum Gram stain and culture came back consistent with normal respiratory akosua. Otherwise no new other complaints. The patient continues to show signs of recovery. She remains on initial vocal dilators and systemic steroids. On 05/12/2016 the patient continues to improve. She is feeling better compared to yesterday. Less short of breath and I think were doing good progress on this patient and rhythm next 24 hours the patient was discharged home. She is gradually increasing level of activity as tolerated. Note that she has advanced COPD with a baseline FEV1 of 34% predicted based on the previous 40 function tests as well as on outpatient basis. Objective - Vital Signs Vital signs: Vital Signs Temp 98.5 F 05/12/16 15:00 Pulse 88 05/12/16 20:11 Resp 20 05/12/16 15:00 BP 132/76 05/12/16 15:00 Pulse Ox 93 L 05/12/16 19:52 Intake & Output 05/12/16 05/12/16 05/13/16 06:59 18:59 06:59 Intake Total 520 Balance 520 Intake: Oral 520 Other: Voiding Method Toilet # Voids 2 2 - Exam Head exam was generally normal. There was no scleral icterus or corneal arcus. Mucous membranes were moist.Neck was supple and without jugular venous distension, thyromegaly, or carotid bruits. Carotids were easily palpable bilaterally. There was no adenopathy. Lung sounds are diminished bilaterally along with diffuse expiratory wheezes heard throughout the lung cole. There is also prolongation of expiratory phase of breathing.Cardiac exam revealed the PMI to be normally situated and sized. The rhythm was regular and no extrasystoles were noted during several minutes of auscultation. The first and second heart sounds were normal and physiologic splitting of the second heart sound was noted. There were no murmurs, rubs, clicks, or gallops.Abdominal exam revealed normal bowel sounds. The abdomen was soft, non-tender, and without masses, organomegaly, or appreciable enlargement of the abdominal aorta.Examination of the extremities revealed easily palpable radial, femoral and pedal pulses. There was no cyanosis, clubbing or edema. - Labs CBC & Chem 7: 05/10/16 09:06 05/10/16 09:06 Labs: Abnormal Lab Results - Last 24 Hours (Table) 05/12/16 05/12/16 05/12/16 Range/Units 07:01 11:58 17:40 POC Glucose (mg/dL) 119 H 114 H 168 H (75-99) mg/dL 05/12/16 Range/Units 20:58 POC Glucose (mg/dL) 191 H (75-99) mg/dL Assessment and Plan Plan: Assessment #1 Acute COPD exacerbation with secondary shortness of breath, failed outpatient treatment. Chest x-rays clear and free of any acute pulmonary infiltrates. Clinically the patient is improving slowly. On today's evaluation she is noted to be more active and she is having less bronchospasm wheezing. #2 Acute on chronic hypoxic respiratory failure in due to above. #3 Chronic osteoarthritis with back pain. #4 Endometriosis Plan Improving slowly. Continue same treatment. Continue IV Solu-Medrol to high dose of 60 mg every 6 hours. Encourage ambulation. No other complaints otherwise. Anticipate another 24-48 hours of treatment prior to his COPD improving. I would suggest switching this patient to a prednisone burst taper as of tomorrow if her condition remains adequate and she continues to improve.
[2016-05-13] MEDS: IPRATROPIUM-ALBUTEROL 3 ML NEB INHALATION PRN ×3 (00:21→12:02)
[2016-05-13] MEDS: HEPARIN SODIUM,PORCINE 5,000 UNIT/ML 1 ML VIAL SQ SCH ×2 (00:49→09:13)
[2016-05-13] MEDS: methylPREDNISolone SOD SUCCI 125 MG/2 ML VIAL IV SCH ×3 (00:51→12:06)
[2016-05-13 07:33] LABS: Glucose,Whole Blood 130 mg/dL (75-99)
[2016-05-13 08:32] VITALS: BP 132/83; RESP 18; TEMP 96.7
[2016-05-13] MEDS: FORMOTEROL FUMARATE 20 MCG/2 ML NEBU INHALATION SCH (08:32)
[2016-05-13] MEDS: TIOTROPIUM 18 MCG/PUFF INHALER INHALATION SCH (08:32)
[2016-05-13] MEDS: BUDESONIDE 1 MG/2 ML NEBU INHALATION SCH (08:32)
[2016-05-13] MEDS: THEOPHYLLINE 24 HOUR 200 MG CAP.ER.24H PO SCH (09:12)
[2016-05-13] MEDS: VERAPAMIL 80 MG TAB PO SCH (09:12)
[2016-05-13] MEDS: LACTOBACILLUS ACIDOPH & BULGAR 1 EACH PACKET PO SCH (09:12)
[2016-05-13] MEDS: PANTOPRAZOLE 40 MG TABLET PO SCH (09:13)
[2016-05-13] MEDS: LORATADINE 10 MG TAB PO SCH (09:13)
[2016-05-13] MEDS: INSULIN LISPRO (humaLOG) 300 UNIT/3 ML VIAL SQ SCH ×2 (09:13→12:07)
[2016-05-13] MEDS: guaiFENesin 600 MG TABLET.ER PO SCH (09:13)
[2016-05-13 11:17] VITALS: BMI 23.0
[2016-05-13 11:29] LABS: Glucose,Whole Blood 157 mg/dL (75-99)
[2016-05-13] MEDS: MULTIVITAMINS, THERA 1 EACH TAB PO SCH (12:06)
[2016-05-13 12:21] VITALS: PULSE 104
--- NOTE | 2016-05-13 16:12 | P.PN ---
Subjective Principal diagnosis: Acute exacerbation of severe COPD This is a very pleasant 60-year-old here patient with known history of advanced COPD with a baseline FEV1 of 34% of predicted was recently seen in our office for an acute COPD exacerbation the patient was given a course of Cipro and a steroid burst taper. The patient unfortunately did not show any signs of recovery and she came into the hospital because of increased shortness of breath chest tightness and wheezing. She is admitted currently for an acute COPD exacerbation. She is on a combination of DuoNeb neb last treatment around- the-clock, Pulmicort Respules, Perforomist neb last treatment was and IV Solu- Medrol. The chest x-rays consistent with COPD without any acute process. No angina. No swelling lower extremities. No change in mental status. No other complaints otherwise. The patient is an ex-smoker and she quit smoking approximately a year ago. In terms of her COPD, the patient has a maintained on Spiriva and a maternal blood she was on a stat basis and she's been utilizing oxygen as needed especially at nighttime. She is seen again today 05/08/2016 in follow-upon the regular medical floor. She is awake and alert in no acute distress. She states she is breathing slightly better today as compared to yesterday. Still dyspneic on minimal exertion. Still bronchospastic and wheezy.she has a loose nonproductive cough. No chills or night sweats. She is maintaining good O2 saturations in the upper 90s on 3 L/m per nasal cannula. Currently afebrile. The patient is seen again today 05/09/2016 in follow-up. She has been up ambulating in the room. She does remain dyspneic on minimal exertion but is better today as compared to yesterday. She is maintaining good O2 saturations in the mid 90s on 2 L/m per nasal cannula. She is afebrile. She continues with a loose productive cough of yellow sputum. Sputum specimen is still pending. The patient is seen again today 05/10/2016 in follow-up on the regular medical floor. She is awake and alert in no acute distress. She still has a loose nonproductive cough. Wheezing. Dyspnea on exertion. Not quite back to her baseline. We'll continue with her current medications. Sputum culture revealed no growth. Blood cultures revealed no growth. She remains afebrile. She is maintaining good O2 saturations in the mid 90s on 2 L/m per nasal cannula. On 05/11/2016 the patient is still being treated for an acute COPD exacerbation. The patient has severe COPD with an FEV1 of 34% of predicted at baseline. She is showing some limited improvement and she is less short of breath. Yet she does not think she is back to her baseline. She gets short of breath with limited amount of activity and her sputum Gram stain and culture came back consistent with normal respiratory akosua. Otherwise no new other complaints. The patient continues to show signs of recovery. She remains on initial vocal dilators and systemic steroids. On 05/12/2016 the patient continues to improve. She is feeling better compared to yesterday. Less short of breath and I think were doing good progress on this patient and rhythm next 24 hours the patient was discharged home. She is gradually increasing level of activity as tolerated. Note that she has advanced COPD with a baseline FEV1 of 34% predicted based on the previous 40 function tests as well as on outpatient basis. On 05/13/2016, patient is improving, but not quite ready for discharge planning, however I feel possibly in the next 24 hours, patient will be ready to be discharged. Continues to have some wheezing on physical examination, patient feels much improved compared to her baseline. She thinks she is ready to be discharged. Objective - Vital Signs Vital signs: Vital Signs Temp 96.7 F L 05/13/16 07:00 Pulse 104 H 05/13/16 12:21 Resp 18 05/13/16 08:00 BP 132/83 05/13/16 07:00 Pulse Ox 93 L 05/13/16 08:34 Intake & Output 05/12/16 05/13/16 05/13/16 18:59 06:59 18:59 Intake Total 520 450 750 Balance 520 450 750 Weight 59 kg Intake: Oral 520 450 750 Other: # Voids 2 1 2 # Bowel Movements 0 - Exam Physical Exam: Revealed a 60-year-old female in no distress HEENT:[Neck is supple.] [No neck masses.] [No thyromegaly.] [No JVD.] Chest: [Diminished breath sounds at the bases some wheezing on forced expiratory maneuver was noted. Cardiac Exam: [Normal S1 and S2, no S3 gallop, no murmur.] Abdomen: [Soft, nontender, no megaly, no rebound, no guarding, normal bowel sounds.] Extremities: [No clubbing, no edema, no cyanosis.] Neurological Exam: [No focal neurologic deficit.] - Labs CBC & Chem 7: 05/10/16 09:06 05/10/16 09:06 Labs: Abnormal Lab Results - Last 24 Hours (Table) 05/12/16 05/12/16 05/13/16 Range/Units 17:40 20:58 07:16 POC Glucose (mg/dL) 168 H 191 H 130 H (75-99) mg/dL 05/13/16 Range/Units 11:20 POC Glucose (mg/dL) 157 H (75-99) mg/dL Assessment and Plan Plan: #1 Acute COPD exacerbation with secondary shortness of breath, failed outpatient treatment. Chest x-rays clear and free of any acute pulmonary infiltrates. Clinically the patient is improving slowly. On today's evaluation she is noted to be more active and she is having less bronchospasm wheezing. #2 Acute on chronic hypoxic respiratory failure in due to above. #3 Chronic osteoarthritis with back pain. #4 Endometriosis Recommendation: Continue present treatment plan, possibly discharge the patient home in a.m. if she continues to do well. Time with Patient: Less than 30
--- NOTE | 2016-05-13 16:20 | P.DS ---
Providers Date of admission: 05/06/16 14:19 Expected date of discharge: 05/13/16 Attending physician: Ni Meléndez Consults: Dr. Brower & Aldair Silva, Pulmonary Primary care physician: Robbi Watt Hospital Course: Final Diagnoses: 1. Acute on chronic hypercapnic, hypoxic respiratory failure secondary to acute COPD exacerbation in a patient with advanced COPD. 2. Mild Sinus tachycardia secondary to hypoxemia, on verapamil 3. Acute Severe tracheobronchitis with possibly pneumococcus 4. History of C. difficile 5. Chronic low back pain, degenerative joint disease 6. Nicotine dependence Hospital course: This a 60-year-old female admitted with acute COPD exacerbation , acute on chronic hypercapnic, hypoxic respiratory failure and multiple other medical issues. Maintained on nebulized bronchodilators, IV steroids and Rocephin with significant clinical improvement. Evaluated and cleared by pulmonary for discharge. Patient is being discharged home in a stable condition with guarded prognosis. The impression and plan of care has been dictated as directed. : I performed a H&P examination of this patient and discussed the same with the dictator. I agree with the dictator's note. Any additional findings/opinions/ etc. will be noted. Patient Condition at Discharge: Stable Plan - Discharge Summary New Discharge Prescriptions: Cefuroxime Axetil [Ceftin] 500 mg PO BID #10 tab Nystatin 100,000 Unit/ml Susp [Mycostatin Oral Susp] 5 ml PO QID #100 ml Verapamil [Isoptin] 80 mg PO TID #90 tab predniSONE 10 mg PO DIRECTED #30 tab Discharge Medication List Albuterol Inhaler [Ventolin Hfa Inhaler] 1 - 2 puff INHALATION RT-QID PRN [History] Albuterol Nebulized [Ventolin Nebulized] 2.5 mg INHALATION RT-QID PRN 05/17/15 [ History] Budesonide [Pulmicort] 1 mg INHALATION RT-BID #60 nebu 06/01/15 [Rx] Tiotropium 18 Mcg/Puff [Spiriva] 1 puff INHALATION RT-DAILY #1 inhaler 06/01/15 [Rx] Formoterol Fumarate [Perforomist] 20 mcg INHALATION RT-BID 02/29/16 [History] Cetirizine HCl [Zyrtec] 10 mg PO DAILY 05/06/16 [History] L.acidoph,Paracasei, B.lactis [Probiotic] 1 cap PO DAILY 05/06/16 [History] Multivitamins, Thera [Multivitamin] 1 tab PO DAILY 05/06/16 [History] Theophylline Anhydrous [Theophylline] 200 mg PO DAILY 05/06/16 [History] guaiFENesin [Mucinex] 600 mg PO BID 05/06/16 [History] Cefuroxime Axetil [Ceftin] 500 mg PO BID #10 tab 05/13/16 [Rx] Nystatin 100,000 Unit/ml Susp [Mycostatin Oral Susp] 5 ml PO QID #100 ml [Rx] Verapamil [Isoptin] 80 mg PO TID #90 tab 05/13/16 [Rx] guaiFENesin-DM 100-10MG/5ML [Robitussin DM] 10 ml PO Q6H PRN #0 cup 05/13/16 [Rx ] predniSONE 10 mg PO DIRECTED #30 tab 05/13/16 [Rx] Follow up Appointment(s)/Referral(s): Ignacio Quinteros MD [STAFF PHYSICIAN] - 05/16/16 1:00 pm Robbi Watt MD [Primary Care Provider] - 05/14/16 1:00 pm ( * [facility]*) Patient Instructions/Handouts: COPD (Chronic Obstructive Pulmonary Disease) (DC ) Activity/Diet/Wound Care/Special Instructions: Diet: Cardiac, yogurt between meals Activity: Limited until follow up
== END 2016-05-13 16:17 | disposition home or self-care (01) | DRG 190 ==
LOC: EC 12:54 → 4MS4W 14:19
PROVIDERS: ADMIT Hospitalist; ATTEND Hospitalist
DX: J44.0 Chronic obstructive pulmonary disease with (acute) lower respiratory infection (principal); J96.22 Acute and chronic respiratory failure with hypercapnia; J96.21 Acute and chronic respiratory failure with hypoxia; Z99.81 Dependence on supplemental oxygen; J45.901 Unspecified asthma with (acute) exacerbation; J44.1 Chronic obstructive pulmonary disease with (acute) exacerbation; J20.9 Acute bronchitis, unspecified; D72.829 Elevated white blood cell count, unspecified; R00.0 Tachycardia, unspecified; T38.0X5A Adverse effect of glucocorticoids and synthetic analogues, initial encounter; G89.29 Other chronic pain; M54.5 Low back pain; F41.9 Anxiety disorder, unspecified; N80.9 Endometriosis, unspecified; M19.90 Unspecified osteoarthritis, unspecified site; Z87.891 Personal history of nicotine dependence; Z86.19 Personal history of other infectious and parasitic diseases; Z79.51 Long term (current) use of inhaled steroids; Z79.52 Long term (current) use of systemic steroids; Z79.899 Other long term (current) drug therapy
CPT/HCPCS: 36415; 71020; 80048; 80053; 82550; 82553; 83036; 83735; 83880; 84484; 85025; 85027; 85610; 85730; 87040; 87070; 87205; 87502; 93005; 94640; 94667; 94760; 96361; 96374; 99285

== ENCOUNTER 2016-12-13 09:22 | Day surgery (SDC) | payer MEDICARE, BC ==
[2016-12-12 11:45] VITALS: BMI 22.6
[~2016-12-13 09:22] MED LIST: GLYCOPYRROLATE 0.2 MG/ML 2 ML VIAL ONE; HYDROmorphone (PF) 1 MG/ML ONE; KETOROLAC 30 MG/ML 1 ML VIAL ONE; LACTATED RINGERS 1,000 ML IV SCH; LIDOCAINE 1% 20 ML VIAL (10MG/ML) FOR IV START INTRADERMA PRN; LIDOCAINE 1% INJ 10MG/ML (20 ML MDV) ONE; MIDAZOLAM 2 MG/2 ML VIAL ONE; NEOSTIGMINE 1 MG/ML 10 ML VIAL ONE; PROPOFOL 10 MG/ML 20 ML VIAL IV ONE; ROCURONIUM BROMIDE 10 MG/ML 10 ML VIAL IV ONE; SUCCINYLCHOLINE CHLORIDE 100 MG/5 ML SYR IV ONE; fentaNYL (PF) 50 MCG/ML 2 ML AMP ONE
[2016-12-13 09:48] VITALS: TEMP 98
[2016-12-13 09:58] LABS: Glucose,Whole Blood 79 mg/dL (75-99)
[2016-12-13] MEDS ORDERED: PROPOFOL 10 MG/ML 20 ML VIAL IV ONE (10:43)
--- NOTE | 2016-12-13 11:01 | P.PCN ---
Date of Procedure: 12/13/16 Procedure(s) Performed: BRIEF HISTORY: Patient is a 61-year-old pleasant white female, scheduled for an elective colonoscopy as a part of evaluation of prior history of colon polyps. Her last colonoscopy she was done 3 years ago and was noted to have a tubular adenoma. PROCEDURE PERFORMED: Colonoscopy with snare polypectomy. PREOPERATIVE DIAGNOSIS: History of colon polyps. IV sedation per Anesthesia. PROCEDURE: After informed consent was obtained, the patient, was brought into the endoscopy unit. IV sedation was administered by Anesthesia under continuous monitoring. Digital rectal examination was normal. Initially the Olympus CF- 160 flexible video colonoscope was then inserted in the rectum, gradually advanced into the cecum without any difficulty. Careful examination was performed as the scope was gradually being withdrawn. Ileocecal valve and the appendiceal orifice were visualized and appeared normal. Prep was excellent. Mucosa of the cecum, ascending colon, transverse colon, appeared normal. In the descending colon at 50 cm from the anal was there was a 1.5 and admitted broad-based polyp that was removed by snare polypectomy. The descending colon, sigmoid colon, and rectum appeared normal. In the proximal rectosigmoid colon at 20 cm from the anal verge there was a 1 polyp removed by snare polypectomy. Retroflexion was performed in the rectum and no lesions were seen. The patient tolerated the procedure well. IMPRESSION: 1.5 cm broad-based ascending colon polyp status post polypectomy 1 cm proximal rectosigmoid polyp status post polypectomy RECOMMENDATIONS: Findings of this examination were discussed with the patient as well as her family. She was advised to follow with the biopsy results. If the biopsy shows a tubular adenoma she can have a repeat colonoscopy in 3-5 years.
[2016-12-13 11:09] VITALS: RESP 16
[2016-12-13 11:40] VITALS: BP 104/78; PULSE 76
== END 2016-12-13 11:59 | disposition home or self-care (01) ==
LOC: ORWHC2ENDO 09:22
PROVIDERS: ATTEND Internal Medicine Gastroenterology
DX: Z12.11 Encounter for screening for malignant neoplasm of colon (principal); Z86.010 Personal history of colon polyps; I10 Essential (primary) hypertension; J44.9 Chronic obstructive pulmonary disease, unspecified; J45.909 Unspecified asthma, uncomplicated; Z88.2 Allergy status to sulfonamides; Z79.899 Other long term (current) drug therapy
CPT/HCPCS: 45385; J2250; J2710; J2001; J3010; J1885; J1170; J0330; J2704; 88305

== ENCOUNTER 2017-06-05 11:16 | Day surgery (SDC) | payer MEDICARE, BC ==
[2017-06-04 09:25] VITALS: BMI 24.7
[~2017-06-05 11:16] MED LIST changes: +ALBUTEROL NEB (CONC) 2.5 MG/0.5 ML INHALATION ONE; +ATROPINE SULFATE 0.4 MG/ML 1 ML VIAL IM ONE; -GLYCOPYRROLATE 0.2 MG/ML 2 ML VIAL ONE; -HYDROmorphone (PF) 1 MG/ML ONE; -KETOROLAC 30 MG/ML 1 ML VIAL ONE; +LACTATED RINGERS 1,000 ML IV ONE; -LIDOCAINE 1% INJ 10MG/ML (20 ML MDV) ONE; +LIDOCAINE 2% (PF) 20 MG/ML 2 ML AMP INHALATION ONE; -MIDAZOLAM 2 MG/2 ML VIAL ONE; -NEOSTIGMINE 1 MG/ML 10 ML VIAL ONE; -PROPOFOL 10 MG/ML 20 ML VIAL IV ONE; +Pre Op ABX Message 1 EACH MISC MISCELLANE ONE; -ROCURONIUM BROMIDE 10 MG/ML 10 ML VIAL IV ONE; -SUCCINYLCHOLINE CHLORIDE 100 MG/5 ML SYR IV ONE; -fentaNYL (PF) 50 MCG/ML 2 ML AMP ONE
[2017-06-05 12:38] VITALS: RESP 16; TEMP 98.3
[2017-06-05] MEDS ORDERED: MIDAZOLAM 2 MG/2 ML VIAL ONE (12:38)
[2017-06-05] MEDS ORDERED: KETAMINE 10 MG/ML 20 ML VIAL ONE (12:38)
[2017-06-05] MEDS ORDERED: PROPOFOL 10 MG/ML 20 ML VIAL IV ONE (12:38)
[2017-06-05 12:39] LABS: Glucose,Whole Blood 91 mg/dL (75-99)
[2017-06-05] MEDS ORDERED: LIDOCAINE 2% INJ 20 MG/ML INTRATRACH ONE (12:42)
[2017-06-05 13:33] VITALS: BP 134/88; PULSE 72
[2017-06-05 16:47] LABS: Appearance,BF Bloody; Nucleated Cells, Body Fluid 75 /uL; RBC, Body Fluid 17050 /uL
[2017-06-05 17:42] LABS: Mononuclear WBC,Body Fluid 59 %; Polynuclear WBC,Body Fluid 41 %; Total Cells Counted,Body Fluid 100
--- NOTE | 2017-06-05 23:27 | PCN ---
PROCEDURE NOTE PROCEDURE: Bronchoscopy airway examination, therapeutic lavage, BAL right middle lobe. PREOP DIAGNOSIS: Retained secretions/severe chronic obstructive pulmonary disease. POSTOP DIAGNOSIS: Retained secretions/severe chronic obstructive pulmonary disease. DESCRIPTION OF PROCEDURE: There was informed consent. There was universal timeout. The patient's procedure was done in [facility] room #2. PHARMACY TECHNICIAN INSTRUCTOR provided general anesthesia and unconscious sedation. Again, there was informed consent and universal timeout. The operators were Dr. Benitez and Dr. Crane. After the patient was adequately sedated and being fully monitored, the bronchoscope was inserted through the right nostril. It passed through the right nasopharynx into the oropharynx. The hypopharynx was identified and topicalized. The hypopharyngeal structures including anterior commissure, true cords, false cords, arytenoids, piriform sinuses, right and left vallecula epiglottis all appeared normal. After topicalization, the bronchoscope was pushed through the glottic opening into the trachea. Trachea had a saber sheath appearance. Tracheal mike was sharp. There were some secretions noted throughout the trachea. They were suctioned after topicalization. The right and left mainstem were topicalized. The right upper lobe and its 3 segments, the right middle lobe and its 2 segments, right lower lobe and its 5 segments, the left upper lobe proper and its 2 segments, the lingula and 2 segments and the left lower lobe and its 4 segments all had very similar findings of severe bronchitis. The mucosa was very erythematous and hyperemic. The mucosa bled easily. It was very friable. There were secretions noted throughout. No dominant mass. There was a fair amount of bronchomalacia. The bronchoscope was then wedged into the right middle lobe. The BAL took place. There was no immediate complications after 30 mL of fluid were obtained. Subsequent to that, saline was used to help cleanse the rest of the airways including left lower lobe, left upper lobe, right middle lobe, right upper lobe and right lower lobe. The patient tolerated the procedure well. The bronchoscope withdrawn. There was no immediate complications. The patient will be recovered and specimen will be sent to the laboratory for analysis. MMODL / IJN: [id number] /
== END 2017-06-05 13:49 | disposition home or self-care (01) ==
LOC: ORWHC2ENDO 11:16
PROVIDERS: ATTEND Internal Medicine Critical Care Medicine
DX: J44.1 Chronic obstructive pulmonary disease with (acute) exacerbation (principal); J98.09 Other diseases of bronchus, not elsewhere classified; E78.2 Mixed hyperlipidemia; J96.11 Chronic respiratory failure with hypoxia; M19.90 Unspecified osteoarthritis, unspecified site; M54.5 Low back pain; G89.29 Other chronic pain; R94.5 Abnormal results of liver function studies; R00.0 Tachycardia, unspecified; I27.20 Pulmonary hypertension, unspecified; I10 Essential (primary) hypertension; Z87.891 Personal history of nicotine dependence; Z88.2 Allergy status to sulfonamides; Z88.8 Allergy status to other drugs, medicaments and biological substances; Z91.09 Other allergy status, other than to drugs and biological substances; Z79.2 Long term (current) use of antibiotics; Z79.82 Long term (current) use of aspirin; Z79.52 Long term (current) use of systemic steroids; Z79.899 Other long term (current) drug therapy; Z79.51 Long term (current) use of inhaled steroids
CPT/HCPCS: 94640; 87798 ×3; 87496; 87498; 87529 ×2; 88108; 88305; 89050; 87252; 87502; 87634; 87070; 87205; 87116; 87102; 87206; 31624; J2001 ×2; J2250; J2704

== ENCOUNTER 2018-12-03 11:15 | Day surgery (SDC) | payer MEDICARE, BC ==
[~2018-12-03 11:15] MED LIST changes: -LACTATED RINGERS 1,000 ML IV ONE; -LACTATED RINGERS 1,000 ML IV SCH; -LIDOCAINE 1% 20 ML VIAL (10MG/ML) FOR IV START INTRADERMA PRN; -LIDOCAINE 2% (PF) 20 MG/ML 2 ML AMP INHALATION ONE; +LIDOCAINE 2% (PF) 20 MG/ML 5 ML VIAL INHALATION ONE; +LIDOCAINE VISCOUS 300 MG/15 ML CUP MUCOUS MEM ONE; -Pre Op ABX Message 1 EACH MISC MISCELLANE ONE; +SODIUM CHLORIDE 0.9% 1,000 ML IV SCH
[2018-12-03] MEDS ORDERED: LACTATED RINGERS 1,000 ML IV ONE (11:55)
[2018-12-03] MEDS ORDERED: LIDOCAINE 1% 20 ML VIAL (10MG/ML) FOR IV START INTRADERMA ONE (11:58)
[2018-12-03 12:04] VITALS: RESP 20; TEMP 97.4
[2018-12-03 12:12] LABS: Glucose,Whole Blood 83 mg/dL (75-99)
[2018-12-03] MEDS ORDERED: LIDOCAINE VISCOUS 2% 15 ML CUP MUCOUS MEM ONE (12:15)
[2018-12-03] MEDS ORDERED: PROPOFOL 10 MG/ML 20 ML VIAL IV ONE (12:33)
[2018-12-03] MEDS ORDERED: LIDOCAINE 2% INJ 20 MG/ML INTRATRACH ONE (12:44)
[2018-12-03 13:01] VITALS: BP 107/73
[2018-12-03 13:16] VITALS: PULSE 91
[2018-12-03 16:47] LABS: Appearance,BF Cloudy; Color,BF Colorless
[2018-12-03 17:20] LABS: Nucleated Cells, Body Fluid 400 /uL; RBC, Body Fluid 6300 /uL
[2018-12-03 17:23] LABS: Mononuclear WBC,Body Fluid 3 %; Polynuclear WBC,Body Fluid 97 %; Total Cells Counted,Body Fluid 100
--- NOTE | 2018-12-03 23:50 | PCN ---
PROCEDURE NOTE PROCEDURE: Bronchoscopy, airway examination, therapeutic lavage, bronchoalveolar lavage in right middle lobe. OPERATORS: 1. Dr. Benitez. 2. Dr. Crane. There was informed consent. There was universal timeout. The patient's procedure took place in room #2 [facility]. Kedar Castillo CRNA, provided unconscious sedation/general anesthesia. DESCRIPTION OF PROCEDURE: After the patient was adequately sedated and being fully monitored, the bronchoscope was inserted through the right nostril. It passed through the right nasopharynx into the oropharynx. The hypopharynx was identified and topicalized. Anterior commissure, true cords, false cords, arytenoids, piriform sinuses, right and left valleculae and epiglottis all appeared relatively normal. After topicalization, the bronchoscope was pushed through the glottic opening into the trachea. Trachea appeared normal. There were some secretions noted in the distal trachea. The tracheal mike was sharp. The right and left mainstem were topicalized. The right lower lobe and its 3 segments, the right middle lobe and its 2 segments, the right lower lobe and its 5 segments, the left upper lobe proper and its 2 segments, the lingula and its 2 segments, and the left lower lobe and its 4 segments all had similar findings of diffuse erythema and hyperemia of the airways. There was some mucosal friability. There were thick yellow secretions noted throughout. The secretions were suctioned without difficulty. The patient was suctioned throughout. There was no dominant mass or tumor. As I mentioned, there was some mucosal friability. The secretions were yellow and thick. After they were suctioned, the bronchoscope was wedged into the right middle lobe. We did a formal BAL. The patient tolerated the procedure well. There was no significant bleeding. After the remaining secretions were suctioned, the bronchoscope was withdrawn. There was no immediate complication. The patient will be recovered. MMODL / IJN: [id number] /
== END 2018-12-03 13:46 | disposition home or self-care (01) ==
LOC: ORWHC2ENDO 11:15
PROVIDERS: ATTEND Internal Medicine Critical Care Medicine
DX: J44.1 Chronic obstructive pulmonary disease with (acute) exacerbation (principal); J96.11 Chronic respiratory failure with hypoxia; B02.9 Zoster without complications; E78.2 Mixed hyperlipidemia; M54.5 Low back pain; G89.29 Other chronic pain; M19.90 Unspecified osteoarthritis, unspecified site; F41.9 Anxiety disorder, unspecified; E66.9 Obesity, unspecified; Z88.2 Allergy status to sulfonamides; Z88.8 Allergy status to other drugs, medicaments and biological substances; Z91.048 Other nonmedicinal substance allergy status; Z79.83 Long term (current) use of bisphosphonates; Z79.899 Other long term (current) drug therapy; Z99.81 Dependence on supplemental oxygen; Z99.89 Dependence on other enabling machines and devices; Z90.89 Acquired absence of other organs; Z98.890 Other specified postprocedural states; Z87.891 Personal history of nicotine dependence; Z82.49 Family history of ischemic heart disease and other diseases of the circulatory system; Z80.6 Family history of leukemia
CPT/HCPCS: 94640; 87798 ×3; 87496; 87498; 87529 ×2; 88108; 88305; 89050; 87252; 87502; 87634; 87070; 87205; 87116; 87102; 87206; 31624; J2001 ×2; J0461; J2704

== ENCOUNTER 2021-09-20 09:55 | Day surgery (SDC) | payer MEDICARE, BC ==
--- NOTE | 2021-09-20 09:06 | P.GSHP ---
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 She presents today for surgical excision. PAST MEDICAL HISTORY: Please see list. PAST SURGICAL HISTORY: Please see list. MEDICATIONS: Please see list. ALLERGIES: Please see list. SOCIAL HISTORY: No illicit drug use FAMILY HISTORY: No reports of Crohn disease or ulcerative colitis. REVIEW OF ORGAN SYSTEMS: CONSTITUTIONAL: No reports of fevers or chills. GI: Denies any blood in stools or constipation. PHYSICAL EXAM: VITAL SIGNS: Stable SKIN: Well perfused. Good skin turgor. 3cm lesion chest wall along previous incision site for double lung transplant. Musculoskeletal: No clubbing cyanosis or edema GENERAL: Well developed and in no acute distress. Pleasant. HEENT: No sclera icterus. Extraocular movements grossly intact. Moist buccal mucosa. Head is atraumatic, normocephalic. Hears conversational speech. No nasal drainage. NECK: Supple without lymphadenopathy. No JV distention. CHEST: Non-labored respirations and equal bilateral excursions. CARDIOVASCULAR: Regular rate and rhythm. Palpable 2+ radial pulses. ABDOMEN: Soft. Non-tender. Nondistended. NEUROLOGIC: No focal or lateralizing signs. PSYCH: Appropriate affect. Alert and oriented to person, place and time. ASSESSMENT: 1. Mass along chest wall. 2. History of lung transplant PLAN: 1. Will proceed of excision of subcutaneous tumor along the chest wall. 2. DVT prophylaxis. 3. Antibiotic prophylaxis. 4. Time of recovery, at least one week. 5. She is elevated risk due to history of lung transplant and immunosuppressive 6. Anesthesia Gen. 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 ( no History of Any Multi-Drug Resistant Organisms: None Reported Date of last positivie culture/infection: MDRO Source:: stool- c -diff Past Surgical History: Section, Heart Catheterization, Tonsillectomy, Tubal Ligation Additional Past Surgical History / Comment(s): colonoscopy, D&C. c section x4, Double lung transplant. 07/2020 Past Anesthesia/Blood Transfusion Reactions: Family History of Problems w/ Anesthesia Additional Past Anesthesia/Blood Transfusion Reaction / Comment(s): daughters had PONV Smoking Status: Former smoker - Past Family History Father Family Medical History: Cancer Additional Family Medical History / Comment(s): Father is . He had kidney, bladder and prostate cancer. He also had leukemia. Mother Additional Family Medical History / Comment(s): Mother is alive and 83 yrs old. She has a pacemaker and has had cardioversion. Sister(s) Family Medical History: Cancer Additional Family Medical History / Comment(s): Lung Medications and Allergies Home Medications Medication Instructions Recorded Confirmed Type Azithromycin [Zithromax] 250 mg PO MOWEFR 06/04/17 09/14/21 History predniSONE 5 mg PO DAILY 06/04/17 09/14/21 History Cholecalciferol [Vitamin D3 (25 50 mcg PO DAILY 09/14/21 09/14/21 History Mcg = 1000 Iu)] Metoprolol Succinate (ER) [Toprol 45 mg PO DAILY 09/14/21 09/14/21 History Xl] Motilium 10 mg PO BID 09/14/21 09/14/21 History Ondansetron [Zofran] 4 mg PO Q6HR PRN 09/14/21 09/14/21 History Pantoprazole [Protonix] 1 tab PO DAILY 09/14/21 09/14/21 History Pravastatin Sodium [Pravachol] 20 mg PO HS 09/14/21 09/14/21 History 27-0.8 1 tab PO DAILY 09/14/21 09/14/21 History Sulfamethox-Tmp 400-80Mg [Bactrim 1 tab PO DAILY 09/14/21 09/14/21 History SS 400-80 mg] Tacrolimus [Prograf] 2 mg PO BID 09/14/21 09/14/21 History azaTHIOprine [Imuran] 125 mg PO DAILY 09/14/21 09/14/21 History valGANciclovir [Valcyte] 450 mg PO BID 09/14/21 09/14/21 History Allergies Allergy/AdvReac Type Severity Reaction Status Date / Time gabapentin Allergy Severe Swelling Verified 09/14/21 11:04 NSAIDS (Non-Steroidal Allergy Severe Swelling Verified 09/14/21 11:04 Anti-Inflamma acetylcysteine Allergy Dyspnea,bro Verified 09/14/21 11:04 [From Mucomyst] nchospasms Sulfa (Sulfonamide Allergy Rash/Hives Verified 09/14/21 11:04 Antibiotics) atorvastatin AdvReac Unknown Verified 09/14/21 11:04 pet dander Allergy Rash/Hives Uncoded 09/14/21 11:04
[~2021-09-20 09:55] MED LIST changes: +ACETAMINOPHEN TAB 500 MG TAB PO PRN; -ALBUTEROL NEB (CONC) 2.5 MG/0.5 ML INHALATION ONE; -ATROPINE SULFATE 0.4 MG/ML 1 ML VIAL IM ONE; +DEXAMETHASONE SOD PHOSPHATE 4 MG/ML 1 ML VIAL IV ONE; +HEPARIN SODIUM,PORCINE/PF 5,000 UNIT/0.5 ML SYRINGE SQ PRN; +HYDROmorphone 0.5 MG/0.5 ML SYRINGE IVP PRN; +LACTATED RINGERS 1,000 ML IV SCH; -LIDOCAINE 2% (PF) 20 MG/ML 5 ML VIAL INHALATION ONE; -LIDOCAINE VISCOUS 300 MG/15 ML CUP MUCOUS MEM ONE; +ONDANSETRON 4 MG/2 ML VIAL IVP ONE; +Pre Op ABX Message 1 EACH MISC MISCELLANE ONE; -SODIUM CHLORIDE 0.9% 1,000 ML IV SCH
[2021-09-20 10:37] LABS: Glucose,Whole Blood 111 mg/dL (70-110)
[2021-09-20] MEDS ORDERED: HYDROCORTISONE SUCCINATE 100 MG/2 ML VIAL IVP ONE (10:49)
[2021-09-20] MEDS ORDERED: PROPOFOL 10 MG/ML 20 ML VIAL IV ONE (12:04)
[2021-09-20] MEDS ORDERED: MIDAZOLAM 2 MG/2 ML VIAL ONE (12:04)
[2021-09-20] MEDS ORDERED: LIDOCAINE 2% INJ 20 MG/ML (2 ML VIAL) ONE (12:04)
[2021-09-20] MEDS ORDERED: fentaNYL (PF) 50 MCG/ML 2 ML AMP ONE (12:04)
[2021-09-20] MEDS ORDERED: PHENYLEPHRINE-0.9% NACL SYG 1,000 MCG/10 ML SYRINGE ONE (12:04)
[2021-09-20] MEDS ORDERED: BUPIVACAIN-EPI 0.25%-1:200,000 30 ML VIAL SQ ONE (12:37)
--- NOTE | 2021-09-20 13:06 | P.OP ---
Date of Procedure: 09/20/21 Description of Procedure: SURGEON: KERA LYNNE MD TROUBLE TRACER: None. PREOPERATIVE DIAGNOSES: 1. Left chest wall mass 2. History of double lung transplant 3. History of chronic hypoxic respiratory failure 4. Endometriosis 5. Tachyarrhythmia 6. Gastroesophageal reflux disease 7. Chronic immunosuppression due to double lung transplant POSTOPERATIVE DIAGNOSES: 1. Left chest wall mass 2. History of double lung transplant 3. History of chronic hypoxic respiratory failure 4. Endometriosis 5. Tachyarrhythmia 6. Gastroesophageal reflux disease 7. Chronic immunosuppression due to double lung transplant PROCEDURES PERFORMED: 1. Excision of the subcutaneous left chest wall mass, 6 cm x 2 cm 2. Intermediate closure of 8 cm along the chest wall. ANESTHESIA: GETA and local ESTIMATED BLOOD LOSS: 5 mL. SPECIMENS REMOVED: Chest wall mass COMPLICATIONS: None. FINDINGS: 1. Firm nodular 1.5 cm mass within deep subcutaneous tissue at anterior axillary line, lateral to inferior mammary crease, excised en total 6 cm x 2 cm 2. Tumor palpated along the inferior medial aspect of the proposed incision INDICATIONS: The patient is a 65-year-old female with tender and palpable tumor along the left chest wall. Now she presents for surgical intervention. Benefits and risks of surgical intervention were described including bleeding, infection. Informed consent was obtained. DESCRIPTION OR PROCEDURE: Patient was brought into the operating room, laid in supine position. After general induction, the chest was prepped and draped in a standard sterile fashion with ChloraPrep. Timeout protocol was confirmed with the surgical team regarding the patient's name, procedure to be performed including preoperative medications. DVT prophylaxis was confirmed. A field block was placed of the left chest wall inferior lateral to the left inframammary crease. Indelible marker was placed around the mid chest lesion. A transverse incision using #15 blade was made along the marking into the dermis and subcutaneous tissue. Electro-Bovie cautery was used to excise the lesion down to the fascia in a circumferential fashion. A firm 1 cm nodule was excised including subcutaneous tissue the total size of 6 cm by 2 cm. 0 Vicryl for the deep subcutaneous tissue followed by 3-0 Monocryl in a running subcuticular fashion was placed along the dermis. Skin incision of 8 cm closed in a transverse fashion. The skin was cleansed and Exofin tape was applied followed by Optifoam. Local anesthetic was placed. At the end of the procedure, needle, sponge, and instrument count was verified correct by surgical tech. The patient was awoken and taken to the second stage postanesthesia care unit. The patient tolerated the procedure well. Plan - Discharge Summary Discharge Rx Participant: No New Discharge Prescriptions: New Acetaminophen Tab [Tylenol Tab] 1,000 mg PO Q6HR PRN #30 tablet PRN Reason: Pain Continue predniSONE 5 mg PO DAILY Azithromycin [Zithromax] 250 mg PO MOWEFR Cholecalciferol [Vitamin D3 (25 Mcg = 1000 Iu)] 50 mcg PO DAILY valGANciclovir [Valcyte] 450 mg PO BID azaTHIOprine [Imuran] 125 mg PO DAILY Motilium 10 mg PO BID Pravastatin Sodium [Pravachol] 20 mg PO HS Pantoprazole [Protonix] 1 tab PO DAILY Ondansetron [Zofran] 4 mg PO Q6HR PRN PRN Reason: Nausea Metoprolol Succinate (ER) [Toprol XL] 45 mg PO DAILY Tacrolimus [Prograf] 2 mg PO BID Sulfamethox-Tmp 400-80Mg [Bactrim SS 400-80 mg] 1 tab PO DAILY 27-0.8 1 tab PO DAILY Discharge Medication List Azithromycin [Zithromax] 250 mg PO MOWEFR 06/04/17 [History] predniSONE 5 mg PO DAILY 06/04/17 [History] Cholecalciferol [Vitamin D3 (25 Mcg = 1000 Iu)] 50 mcg PO DAILY 09/14/21 [History] Metoprolol Succinate (ER) [Toprol XL] 45 mg PO DAILY 09/14/21 [History] Motilium 10 mg PO BID 09/14/21 [History] Ondansetron [Zofran] 4 mg PO Q6HR PRN 09/14/21 [History] Pantoprazole [Protonix] 1 tab PO DAILY 09/14/21 [History] Pravastatin Sodium [Pravachol] 20 mg PO HS 09/14/21 [History] 27-0.8 1 tab PO DAILY 09/14/21 [History] Sulfamethox-Tmp 400-80Mg [Bactrim SS 400-80 mg] 1 tab PO DAILY 09/14/21 [History] Tacrolimus [Prograf] 2 mg PO BID 09/14/21 [History] azaTHIOprine [Imuran] 125 mg PO DAILY 09/14/21 [History] valGANciclovir [Valcyte] 450 mg PO BID 09/14/21 [History] Acetaminophen Tab [Tylenol Tab] 1,000 mg PO Q6HR PRN #30 tablet 09/20/21 [Rx] Follow up Appointment(s)/Referral(s): Kera Lynne MD [STAFF PHYSICIAN] - 09/25/21 3:15 pm Patient Instructions/Handouts: *Surgery [facility] - (Anesthesia) Discharge Instructions Outpatient Surgery, Dermal Cyst Excision (DC) Activity/Diet/Wound Care/Special Instructions: Do not remove dressing. May shower. Diet as tolerated. No lifting over 20 for 2 weeks, October 04. Discharge Disposition: HOME SELF-CARE
[2021-09-20 13:13] VITALS: TEMP 97.1
[2021-09-20 13:55] VITALS: RESP 16
[2021-09-20 14:27] VITALS: BP 112/73; PULSE 78
== END 2021-09-20 14:42 | disposition home or self-care (01) ==
LOC: OR 09:55
PROVIDERS: ATTEND Surgery Plastic and Reconstructive Surgery
DX: R22.2 Localized swelling, mass and lump, trunk (principal); Z94.2 Lung transplant status; Z87.09 Personal history of other diseases of the respiratory system; N80.9 Endometriosis, unspecified; R00.0 Tachycardia, unspecified; K21.9 Gastro-esophageal reflux disease without esophagitis; D84.822 Immunodeficiency due to external causes; J45.909 Unspecified asthma, uncomplicated; E78.5 Hyperlipidemia, unspecified; M19.90 Unspecified osteoarthritis, unspecified site; G89.29 Other chronic pain; M54.9 Dorsalgia, unspecified; Z87.891 Personal history of nicotine dependence; Z80.52 Family history of malignant neoplasm of bladder; Z80.51 Family history of malignant neoplasm of kidney; Z80.6 Family history of leukemia; Z80.42 Family history of malignant neoplasm of prostate; Z80.1 Family history of malignant neoplasm of trachea, bronchus and lung; Z79.899 Other long term (current) drug therapy; Z79.52 Long term (current) use of systemic steroids; Z88.2 Allergy status to sulfonamides; Z88.6 Allergy status to analgesic agent; Z88.8 Allergy status to other drugs, medicaments and biological substances; Z91.09 Other allergy status, other than to drugs and biological substances
CPT/HCPCS: 88305; 11406; 12034; J2250; J1100; J1720; J0690; J2405; J3010; J2370; J2704; J1644; J2001

== ENCOUNTER 2021-12-13 08:36 | Day surgery (SDC) | payer MEDICARE, BC ==
--- NOTE | 2021-12-13 07:37 | P.GSHP ---
History of Present Illness H&P Date: 12/13/21 CHIEF COMPLAINT: Colon screen HISTORY OF PRESENT ILLNESS: The patient is a 66-year-old female who presents for colon screen. Lower endoscopy was offered for further evaluation and management. PAST MEDICAL HISTORY: Please see list. PAST SURGICAL HISTORY: Please see list. MEDICATIONS: Please see list. ALLERGIES: Please see list. SOCIAL HISTORY: No illicit drug use FAMILY HISTORY: No reports of Crohn disease or ulcerative colitis. REVIEW OF ORGAN SYSTEMS: CONSTITUTIONAL: No reports of fevers or chills. PHYSICAL EXAM: VITAL SIGNS: Stable GENERAL: Well-developed pleasant in no acute distress. HEENT: No scleral icterus. Extraocular movements grossly intact. Moist buccal mucosa. NECK: Supple without lymphadenopathy. CHEST: Unlabored respirations. Equal bilateral excursions. CARDIOVASCULAR: Regular rate and rhythm. Distal 2+ pulses. ABDOMEN: Soft, nontender, nondistended. MUSCULOSKELETAL: No clubbing, cyanosis, or edema. ASSESSMENT: 1. Colon screen. PLAN: 1. 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 bulging discs, "cracked vertebrae", hx. colon polyps History of Any Multi-Drug Resistant Organisms: None Reported Date of last positivie culture/infection: MDRO Source:: stool- c -diff Past Surgical History: Section, Heart Catheterization, Tonsillectomy, Tubal Ligation Additional Past Surgical History / Comment(s): colonoscopy, D&C. c section x4, Double lung transplant. 07/2020, excision left chest wall mass Past Anesthesia/Blood Transfusion Reactions: Family History of Problems w/ Anesthesia Additional Past Anesthesia/Blood Transfusion Reaction / Comment(s): daughters had PONV Smoking Status: Former smoker - Past Family History Father Family Medical History: Cancer Additional Family Medical History / Comment(s): Father is . He had kidney, bladder and prostate cancer. He also had leukemia. Mother Additional Family Medical History / Comment(s): Mother is alive and 83 yrs old. She has a pacemaker and has had cardioversion. Sister(s) Family Medical History: Cancer Additional Family Medical History / Comment(s): Lung Medications and Allergies Home Medications Medication Instructions Recorded Confirmed Type RX: Azithromycin [Zithromax] 250 mg PO MOWEFR 06/04/17 12/11/21 History RX: predniSONE 5 mg PO DAILY 06/04/17 12/11/21 History Motilium 10 mg PO BID 09/14/21 12/11/21 History 27-0.8 1 tab PO DAILY 09/14/21 12/11/21 History RX: Cholecalciferol [Vitamin D3 50 mcg PO DAILY 09/14/21 12/11/21 History (25 Mcg = 1000 Iu)] RX: Ondansetron [Zofran] 4 mg PO Q6HR PRN 09/14/21 12/11/21 History RX: Pantoprazole [Protonix] 40 mg PO DAILY 09/14/21 12/11/21 History RX: Pravastatin Sodium [Pravachol] 20 mg PO HS 09/14/21 12/11/21 History RX: Sulfamethox-Tmp 400-80Mg 1 tab PO DAILY 09/14/21 12/11/21 History [Bactrim SS 400-80 mg] RX: Tacrolimus [Prograf] 2 mg PO BID 09/14/21 12/11/21 History RX: azaTHIOprine [Imuran] 125 mg PO W/SUPPER 09/14/21 12/11/21 History Acetaminophen Tab [Tylenol Tab] 1,000 mg PO Q6HR PRN #30 tablet 09/20/21 12/11/21 Rx Metoprolol Succinate [Metoprolol 25 mg PO QAM 11/15/21 12/11/21 History Succinate ER] Allergies Allergy/AdvReac Type Severity Reaction Status Date / Time gabapentin Allergy Severe Swelling Verified 12/11/21 13:49 NSAIDS (Non-Steroidal Allergy Severe Swelling Verified 12/11/21 13:49 Anti-Inflamma acetylcysteine Allergy Dyspnea,bro Verified 12/11/21 13:49 [From Mucomyst] nchospasms Sulfa (Sulfonamide Allergy Rash/Hives Verified 12/11/21 13:49 Antibiotics) atorvastatin AdvReac myalgia Verified 12/11/21 13:49 pet dander Allergy Rash/Hives Uncoded 12/11/21 13:49
[~2021-12-13 08:36] MED LIST changes: -ACETAMINOPHEN TAB 500 MG TAB PO PRN; -DEXAMETHASONE SOD PHOSPHATE 4 MG/ML 1 ML VIAL IV ONE; -HEPARIN SODIUM,PORCINE/PF 5,000 UNIT/0.5 ML SYRINGE SQ PRN; -HYDROmorphone 0.5 MG/0.5 ML SYRINGE IVP PRN; +LIDOCAINE 1% (10MG/ML) FOR IV START INTRADERMA PRN; -ONDANSETRON 4 MG/2 ML VIAL IVP ONE; -Pre Op ABX Message 1 EACH MISC MISCELLANE ONE
[2021-12-13 09:27] LABS: Glucose,Whole Blood 115 mg/dL (70-110)
[2021-12-13 09:29] VITALS: TEMP 97.9
[2021-12-13] MEDS ORDERED: PROPOFOL 10 MG/ML 20 ML VIAL IV ONE (09:39)
[2021-12-13 10:05] VITALS: RESP 16
--- NOTE | 2021-12-13 10:20 | P.PCN ---
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 ANESTHESIA: MAC. INDICATIONS: The patient is an 66-year-old female for colonoscopy screening. Benefits and risks were described and informed consent was obtained. DESCRIPTION OF PROCEDURE: The patient had undergone Sutab prep. The patient had been brought into the operating room and laid in the left lateral decubitus position. After adequate intravenous sedation, the rectum was examined with 2% lidocaine jelly. External hemorrhoids were encountered. The rectal tone was within normal limits. No lesions were palpated in the rectal vault. An Olympus colonoscope was advanced until the cecum, ileocecal valve and appendiceal orifice were clearly viewed. The prep was excellent. Pandiverticulosis with sigmoid diverticulosis was encountered. Colonic polyps were found and removed. No evidence of focal colitis was found. Retroflexion of the scope demonstrated grade 2 internal hemorrhoids without active bleeding or inflammation. The colon was desufflated. The patient had tolerated the procedure well. Withdrawal time was over 6 minutes. FINDINGS: Aronchick preparation quality scale 1 (1-5) Internal hemorrhoids, grade 2 External hemorrhoids, grade 2 No arteriovenous malformations. Sigmoid diverticulosis with pandiverticulosis Removal of 2 polyps: - Cold forceps biopsy at 30 cm from the anal verge, 4 mm polyp, descending colon - Cold forceps biopsy at midtransverse colon, 5 mm polyp. Random cold forceps biopsies for CMV colitis RECOMMENDATIONS: Repeat colonoscopy 3 years, 2024 Plan - Discharge Summary Discharge Rx Participant: Yes New Discharge Prescriptions: Continue predniSONE 5 mg PO DAILY Azithromycin [Zithromax] 250 mg PO MOWEFR Cholecalciferol [Vitamin D3 (25 Mcg = 1000 Iu)] 50 mcg PO DAILY azaTHIOprine [Imuran] 125 mg PO W/SUPPER Motilium 10 mg PO BID Pravastatin Sodium [Pravachol] 20 mg PO HS Pantoprazole [Protonix] 40 mg PO DAILY Ondansetron [Zofran] 4 mg PO Q6HR PRN PRN Reason: Nausea Tacrolimus [Prograf] 2 mg PO BID Sulfamethox-Tmp 400-80Mg [Bactrim SS 400-80 mg] 1 tab PO DAILY 27-0.8 1 tab PO DAILY Acetaminophen Tab [Tylenol] 1,000 mg PO Q6HR PRN #30 tablet PRN Reason: Pain Metoprolol Succinate [Metoprolol Succinate ER] 25 mg PO QAM Discharge Medication List Azithromycin [Zithromax] 250 mg PO MOWEFR 06/04/17 [History] predniSONE 5 mg PO DAILY 06/04/17 [History] Cholecalciferol [Vitamin D3 (25 Mcg = 1000 Iu)] 50 mcg PO DAILY 09/14/21 [History] Motilium 10 mg PO BID 09/14/21 [History] Ondansetron [Zofran] 4 mg PO Q6HR PRN 09/14/21 [History] Pantoprazole [Protonix] 40 mg PO DAILY 09/14/21 [History] Pravastatin Sodium [Pravachol] 20 mg PO HS 09/14/21 [History] 27-0.8 1 tab PO DAILY 09/14/21 [History] Sulfamethox-Tmp 400-80Mg [Bactrim SS 400-80 mg] 1 tab PO DAILY 09/14/21 [History] Tacrolimus [Prograf] 2 mg PO BID 09/14/21 [History] azaTHIOprine [Imuran] 125 mg PO W/SUPPER 09/14/21 [History] Acetaminophen Tab [Tylenol] 1,000 mg PO Q6HR PRN #30 tablet 09/20/21 [Rx] Metoprolol Succinate [Metoprolol Succinate ER] 25 mg PO QAM 11/15/21 [History] Follow up Appointment(s)/Referral(s): Kera Lynne MD [STAFF PHYSICIAN] - As Needed Patient Instructions/Handouts: *Sur[facility] - (Anesthesia) Endoscopy Discharge Instructions, Diverticulosis (GEN), Colorectal Polyps (GEN), Diverticulosis Diet (GEN), Colonoscopy (DC) Activity/Diet/Wound Care/Special Instructions: Repeat colonoscopy in 3 years, 2024 Discharge Disposition: HOME SELF-CARE
[2021-12-13 10:31] VITALS: BP 119/69; PULSE 86
== END 2021-12-13 11:05 | disposition home or self-care (01) ==
LOC: ORWHC2ENDO 08:36
PROVIDERS: ATTEND Surgery Plastic and Reconstructive Surgery
DX: Z12.11 Encounter for screening for malignant neoplasm of colon (principal); K63.5 Polyp of colon; K64.4 Residual hemorrhoidal skin tags; K64.8 Other hemorrhoids; K57.30 Diverticulosis of large intestine without perforation or abscess without bleeding; J45.909 Unspecified asthma, uncomplicated; E78.5 Hyperlipidemia, unspecified; M19.90 Unspecified osteoarthritis, unspecified site; M54.9 Dorsalgia, unspecified; G89.29 Other chronic pain; N80.9 Endometriosis, unspecified; R00.0 Tachycardia, unspecified; K21.9 Gastro-esophageal reflux disease without esophagitis; Z86.010 Personal history of colon polyps; Z94.2 Lung transplant status; Z98.891 History of uterine scar from previous surgery; Z95.5 Presence of coronary angioplasty implant and graft; Z90.89 Acquired absence of other organs; Z98.51 Tubal ligation status; Z87.891 Personal history of nicotine dependence; Z80.6 Family history of leukemia; Z80.1 Family history of malignant neoplasm of trachea, bronchus and lung; Z87.09 Personal history of other diseases of the respiratory system; Z82.49 Family history of ischemic heart disease and other diseases of the circulatory system; Z79.2 Long term (current) use of antibiotics; Z79.52 Long term (current) use of systemic steroids; Z79.899 Other long term (current) drug therapy; Z88.9 Allergy status to unspecified drugs, medicaments and biological substances; Z88.6 Allergy status to analgesic agent; Z88.8 Allergy status to other drugs, medicaments and biological substances; Z88.1 Allergy status to other antibiotic agents; Z91.048 Other nonmedicinal substance allergy status
CPT/HCPCS: 88305; 45380; J2704